=== PATIENT | male | born 1985 | race Caucasian/White ===

== ENCOUNTER 2022-05-31 10:01 | Emergency (ER) | payer OTHER, MEDICAID, SELFPAY ==
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
[2022-05-31 10:11] VITALS: BP 136/72; BP 160/106; PULSE 114; PULSE 115; RESP 22; TEMP 36.4; O2SAT 96; O2SAT 99; BMI 39.9
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
[2022-05-31 10:53] LABS: Basophils Percent Auto 0.3 % (0-2); Eosinophils Absolute Auto 0.1 X10*3/uL (0.0-0.4); Eosinophils Percent Auto 1.2 % (0-4); Hematocrit 44.9 % (42.0-52.0); Hemoglobin 15.7 g/dl (14.0-18.0); Imm Gran Abs Auto 0.03 X10*3/uL (0.00-0.03); Imm Gran Pct Auto 0.3 % (0.0-0.4); Lymphocytes Absolute Auto 1.7 X10*3/uL (1.2-4.9); Lymphocytes Percent Auto 19.7 % (20-40); MANUAL DIFF FLAG NO; Mean Corpuscular Hemoglobin 29.3 pg (27.0-33.0); Mean Corpuscular Volume 83.8 fL (80.0-98.0); Mean Platelet Volume 11.2 fL (9.4-12.4); Monocytes Absolute Auto 0.6 X10*3/uL (0.1-1.2); Monocytes Percent Auto 6.8 % (2-11); Neutrophils Absolute Auto 6.2 x10*3/uL (2.0-8.3); Neutrophils Percent Auto 71.7 % (45-73); Platelet Count 294 X10*3/uL (160-400); Red Blood Count 5.36 X10*6/uL (4.60-5.80); Red Cell Distribution Width 11.8 % (11.0-16.0); White Blood Count 8.6 X10*3/uL (4.8-10.8)
[2022-05-31 11:11] LABS: Alanine Aminotransferase 93 U/L (0-40); Albumin Level 4.3 g/dL (3.5-5.0); Alkaline Phosphatase 126 U/L (39-117); Anion Gap 13 (12-20); Aspartate Amino Transferase 56 U/L (5-37); Bilirubin Direct 0.4 mg/dL (0.0-0.5); Bilirubin Total 1.5 mg/dL (0.0-1.0); Blood Urea Nitrogen 18 mg/dL (9-16); Calcium 9.5 mg/dL (8.4-10.2); Carbon Dioxide 26 mmol/L (22-29); Chloride 106 mmol/L (96-108); Creatinine Clr Calc Pharmacy 126.9; Estimated Glomerular Filt Rate > 60; Glucose Random 214 mg/dL (60-115); Magnesium 1.8 mg/dL (1.6-2.6); Potassium 4.7 mmol/L (3.3-5.1); Sodium 140 mmol/L (135-145); Total Protein 7.1 g/dL (6.5-8.0)
[2022-05-31] MEDS: iohexoL 350 MG/ML 100 ML INFUS..BTL IV (11:50)
[2022-05-31 12:50] VITALS: BP 130/77; PULSE 98; RESP 20; O2SAT 97
[2022-05-31] MEDS: HYDROmorphone HCl 1 MG/ML SYRINGE IVPUSH (13:43)
[2022-05-31 14:00] VITALS: BP 119/84; PULSE 111; RESP 26; O2SAT 98
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
[2022-05-31 14:12] LABS: COVID-19 Test Negative (Negative); IDNOW Serial# 16C4AD1C
== END 2022-05-31 14:22 | disposition short-term general hospital (02) ==
PROVIDERS: Physician Assistant; Emergency Provider Emergency Medicine Emergency Medical Services
DX: S27.899A Unspecified injury of other specified intrathoracic organs, initial encounter (principal); V43.52XA Car driver injured in collision with other type car in traffic accident, initial encounter; Y93.89 Activity, other specified; Y92.414 Local residential or business street as the place of occurrence of the external cause; Y99.9 Unspecified external cause status; Z20.822 Contact with and (suspected) exposure to COVID-19
CPT/HCPCS: 36415; 70450; 71260; 72125; 74177; 80048; 80076; 83735; 85025; 87635; 96374; 99285; J1170; Q9967

== ENCOUNTER 2023-12-10 10:33 | Outpatient (AMB) | payer OTHER, SELFPAY ==
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
[2023-12-10 10:49] VITALS: BP 122/72; PULSE 86; RESP 16; BMI 36.9
== END 2023-12-10 11:52 | disposition home or self-care (01) ==
PROVIDERS: PCP Internal Medicine; Visit Provider Psychiatry & Neurology Neurology
DX: R41.89 Other symptoms and signs involving cognitive functions and awareness (principal); G44.86 Cervicogenic headache; D35.2 Benign neoplasm of pituitary gland; R06.83 Snoring; F41.9 Anxiety disorder, unspecified; G47.10 Hypersomnia, unspecified
CPT/HCPCS: 99204; G2211

== ENCOUNTER → 2023-12-10 10:33 | Outpatient (BNVA) | payer OTHER, SELFPAY | PROVIDERS: PCP Internal Medicine; Visit Provider Psychiatry & Neurology Neurology | DX: F09 Unspecified mental disorder due to known physiological condition (principal); F41.9 Anxiety disorder, unspecified; D35.2 Benign neoplasm of pituitary gland; R06.83 Snoring; R51.9 Headache, unspecified; G47.10 Hypersomnia, unspecified | CPT/HCPCS: 99202 ==

== ENCOUNTER → 2024-02-01 10:57 | Outpatient (REF) | payer OTHER, SELFPAY | LOC: HO.SL 10:57 | PROVIDERS: PCP Internal Medicine; Visit Provider Psychiatry & Neurology Neurology | DX: R06.83 Snoring (principal); G47.10 Hypersomnia, unspecified | CPT/HCPCS: 95806 ==

== ENCOUNTER → 2024-02-01 11:06 | Outpatient (BNV) | payer OTHER, SELFPAY | PROVIDERS: PCP Internal Medicine; Visit Provider Psychiatry & Neurology Neurology | DX: G47.33 Obstructive sleep apnea (adult) (pediatric) (principal) | CPT/HCPCS: 95806 ==

== ENCOUNTER 2024-04-13 12:05 | Outpatient (RCR) | payer OTHER, SELFPAY ==
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
== END 2024-04-15 11:49 | disposition still patient (30) ==
LOC: HO.SH 12:05
PROVIDERS: PCP Internal Medicine; Visit Provider Psychiatry & Neurology Neurology
DX: F09 Unspecified mental disorder due to known physiological condition (principal)
CPT/HCPCS: 96125

== ENCOUNTER 2024-04-29 09:49 | Outpatient (AMB) | payer OTHER, SELFPAY ==
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
[2024-04-29 09:55] VITALS: BMI 39.1
--- OUTSIDE RECORDS SUMMARY | 2024-05-04 07:11 | XMS_ITS ---
Author Organization [facility] Address [address] [facility] [address] [place], [place] [id number] Care Team Providers Care Thiokol Operator Name Role Phone NIKKI MCCURDY Unavailable [phone] Allergies No Known Allergies Results Component Value Reference Range Notes Estradiol-[id number] Reviewed date:04/19/2024 07:11:15 PM Interpretation:Normal Performing Lab:[facility], [address] [facility], Phone - [phone], Director - Dequan Notes/Report: Estradiol 122.0 7.6-42.6 pg/mL Deshaun ECLIA m ethodology Lipid Panel-[id number] Reviewed date:04/19/2024 02:31:40 PM Interpretation:Abnormal Performing Lab:[facility], [address] [place] [address], [place], Phone - [phone], Director - Dequan Notes/Report: Cholesterol, Total 151 100-199 mg/dL Triglycerides 301 0-149 mg/dL HDL Cholesterol 21 >39 mg/dL VLDL Cholesterol Ab 50 5-40 mg/dL LDL Chol Calc (NIH) 80 0-99 mg/dL Testosterone,All genders-540 005 Reviewed date:05/02/2024 07:06:57 PM Interpretation:3.9 Performing Lab:[facility], [address] [place] [address], Phone - [phone], Director - Curt Notes/Report: Testosterone, All genders 3.9 This test was developed and its performance characteristics determined by [facility]. It has not been cleared or approved by the Food and Drug Administration. Reference Range: Note: The order code chosen results in a complete set of reference ranges, including transgender specific reference intervals if applicable. Age Range Males Premature (26-28w) Day 4 59-125 Premature (31-35w) Day 4 37-198 Newborns 75-400 1 - 7m: Levels decrease rapidly the first week to 20 - 50, then increase to 60 - 400 between 20 - 60 days. Levels then decline to prepubertal range levels of <2.5 - 10 by seven months. Females Premature (26-28w) Day 4 5-16 Premature (31-35w) Day 4 5-22 Newborns 20-64 1 - 7m: Levels decrease during the first month to less than 10 and remain there until puberty. Prepubertal Males and Females <2.5-10 Milton Stage Age(years) Male 1 <9.8 2.5-10 2 9.8-14.5 18-150 3 10.7-15.4 100-320 4 11.8-16.2 200-620 5 12.8-17.3 350-970 [place] Stage Age(years) Female 1 <9.2 <2.5-10 2 9.2-13.7 7-28 3 10.0-14.4 15-35 4 10.7-15.6 13-32 5 11.8-18.6 20-38 Adult Males >18 years 264-916 This [facility] LC/MS-MS method is currently certified by the CDC Hormone Standardization Program (HoST). Adult male reference interval is based on a population of healthy nonobese males (BMI <30) between 19 and 39 years old. Melissa et.al. JCEM 2017,102;6307-9859 PMID: [id number]. Adult Females Premenopausal 10-55 Postmenopausal 7-40 REASON FOR VISIT Follow-up, Gender affirming hormone followup Medications Medication SIG (Take, Route, Frequency, Duration) Notes Start Date End Date Status Needle (Disp) 22G X 1-1/2 as directed for 90 days 01/18/2024 Active BD Syringe Luer-Bladimir 1 ML as directed for 90 days 0 01/18/2024 Active Easy Comfort Alcohol Pads - as directed for 90 days 01/18/2024 Acti ve Sharps Container - as directed for 90 days 024 Active Loratadine Active Magnesium Active Estradiol Valerate 20 MG/ML 0.25ml/5mg Intramuscular weekly for 90 days 01/18/2024 Active metFORMIN HCl Active Multivitamin Active Escitalopram Oxalate Active Vitamin B2 Active Acetaminophen Active Simethicone Active Fiber Active Social History Sex Assigned At : Social History Observation Description Sex Assigned At Male Vital Signs Blood pressure systolic 136 mm Hg 04/18/20 24 Blood pressure diastolic 78 mm Hg 024 Height 69 in 04/18/2024 Weight 257.1 lbs 04/18/2024 BMI 37.96 kg/m2 04/18/2024 Encounters Encounter Location Date Provider Diagnosis [facility] [address] [place] [id number] 04/18/2024 NIKKI MCCURDY Hormone replacement therapy Z79.890 Assessments Encounter Date Diagnosis (ICD Code) Assessment Notes Treatment Notes Treatment Clinical Notes Section Notes 04/18/2024 Hormone replacement therapy (ICD-10 - Z79.890) Discussed plan of care. Will call with lab results either way and confirm plan of care regarding dose increase. Answered all questions Need 2 out of 3 Sections from A-C Section A) Problems (only need one from below) One stable chronic illness Section B) Data (at least one of the following categories in this section) Category 1: (Choose 2 of the following): Order unique tests Review test results (each unique test counts as one) Category 2: Assessment requiring an independent historian Section C) Risk Document low risk of morbidity/morta lity Plan Of Treatment Treatment Notes Assessment Notes Hormone replacement therapy Discussed pl an of care. Will call with lab results either way and confirm plan of care regarding dose increase. Answered all questions Next Appt Details Follow Up: 3 Months, Reason: Provider Name:NIKKI MCCURDY , 07/19/2024 02:45:00 PM, [address] [place] [address], [phone], Progress Notes * Alvin LEWISDOB:1985 (38 yo M)Acc No.[id number]:04/18/2024 Gender affirming hormones fo llow up visit Patient:?Alvin LEWIS Provider:?Nikki Mccurdy NP :1985???Age:38 Y???Sex:Male William e:04/18/2024 Address:[address] [place] [address], [id number] Subjective: * Chief Complaints: * ???Follow-upGender affirming hormone followup * HPI: ???Visit Narrative:? Clt presenting for follow up [facility] visit. Was seen 12/2023 for initial start. Currently on Estradiol Valerate 0.25ml/5 mg weekly IM injections. Feels well on current dose, but hasn't yet started to notice many changes. Interested in increasing dose. Declines info on androgen myah. ?Reason for the visit:?[facility] follow up?.?Current form of control:?same sex partner?.?Presenting Symptoms:?no sx.?clt here today for [facility] follow up. Stated no concerns at this time, injections going good Has not noticed significant changes either positive or negative except for increased nipple sensitivity. interested in increasing dose of estradiol. Will check labs and call with plan after receiving results. * ROS:?ACHES:?shortness of breath?Denies.?chest pain?Denies.?visual changes?Denies.?calf pain?Denies.?abdominal pain?Denies.?Genitourinary:?Patient denies?pelvic pain.?Psychiatric:?Denies?Mood concerns.? * Medical History:? * Surgical History:?hearing garcia rgery mass in chest * Hospitalization/Major Diagno stic Procedure:?see above * Family History:?No Family Hi story documented..? * Social History:?Food Access:?Food Access?The Client's current access to food is?Secure Food Access ???Housing:?Housing?The client's current living situation is:?stable housing ???Reproductive Life Plan:?Reproductive Life Plan?Do you want to have children??No, I don't want to have children ???Sexual History:?Sexual History?Sexual History Reviewed:?Partners, Practices, Protection/Past STIs, Prevention of ?Currently sexually active??Yes ?Sexually active with:?Assigned Male at both fiance and SO transfem ?Number of assigned male at partners?2 ?Reviewed types of EC??No ?Do you use condoms??No ?Number of partners in past 3 months:?2 ?Number of partners in past year:?2 ?Does your partner(s) currently have any STIs??No ???HIV Risk Assessment:?Additional Questions?Is an HIV Risk Assessment being conducted??No ???PrEP for HIV:?PrEP for HIV?Is the client interested in beginning/continuing PrEP for HIV??No ???Relationships:?Relationships?Has the client experienced any of the following:?Client has never experienced harmful relationships ???Human Trafficking:?Human Trafficking?Experienced:?No ???Tobacco Use:?Tobacco Use?Do you/have you used tobacco??Yes, in the past ?Tobacco Smoking Status?Former smoker ???Drugs/Alcohol:?Drug/Alcohol Use?Do you or have you used drugs??Yes, currently ?By what route are you taking drugs? Please check all that apply:?Smoking ?Which drug(s) do you smoke??Marijuana ?Do you or have you used alcohol??Yes, currently ???Counseling Provided:?Counseling Provided?Please indicate the length of time, in minutes, that counseling was provided.?6 ?Counseling Was Provided By:?mustapha * Medications:?TakingSimethico ne Acetaminophen Vitamin B2 Escitalopram Oxalate Fiber Magnesium Loratadine Multivitamin metFORMIN HCl Estradiol Valerate 20 MG/ML Oil 0.25ml/5mg Intramuscular weekly Sharps Container - Miscellaneous as directed Easy Comfort Alcohol Pads - Pad as directed BD Syringe Luer-Bladimir 1 ML Miscellaneous as directed Needle (Disp) 22G X 1-1/2 Miscellaneous as directed Taking Simethicone Taking Acetaminophen Taking Vitamin B2 Taking Escitalopram Oxalate Taking Fiber Taking Magnesium Taking Loratadine Taking Multivitamin Taking metFORMIN HCl Taking Estradiol Valerate 20 MG/ML Oil 0.25ml/5mg Intramuscular weekly Taking Sharps Container - Miscellaneous as directed Taking Easy Comfort Alcohol Pads - Pad as directed Taking BD Syringe Luer-Bladimir 1 ML Miscellaneous as directed Taking Needle (Disp) 22G X 1-1/2 Miscellaneous as directed DiscontinuedVitamin B 12 Medication List reviewed and reconciled with the patientDiscontinued Vitamin B 12 Medication List reviewed and reconciled with the patient * Allergies:?N.K.D.A.no[Allerg ies Verified] Objective: * Vitals:?BP:136/78mm Hg, Ht: 69 in, Wt:257.1lbs, BMI:37.96Index, Ht-cm: 175.26, Wt-k.62. * Examination: ???General Examination: ?GENERAL APPEARANCE:?pleasant, in no acute distress.? Assessment: * Assessment: 1.?Hormone replacement thera py - Z79.890 (Primary)??? Need 2 out of 3 Sections fro m A-C Section A) Problems (only need one from below) One stable chronic illness Section B) Data (at least one of the following categories in this section) Category 1: (Choose 2 of the following): Order unique tests Review test results (each unique test counts as one) Category 2: Assessment requiring an independent historian Section C) Risk Document low risk of morbidity/mortality Plan: * Treatment: * Procedure Codes:? * Follow Up:?3 Months * Billing Information: * Visit Code:? 95023 Existing - Low Complexity (IN USE). * Procedure Codes:? * Sign off status: Completed true * Provider:Elsi Mccurdy NP Date:? 024 Generated for Mervin lucero/Feliberto/Kamranransmitting on:?05/04/2024 07:10 AM EST History and Physical Notes * HPI (History of Present Illness) Category Sub-Category Detail Notes Category Not es Visit Narrative Reason for the visit: [facility] follow up clt here today for [facility] follow up. Stated no concerns at this time, injections going good Has not noticed significant changes either positive or negative except for increased nipple sensitivity. interested in increasing dose of estradiol. Will check labs and call with plan after receiving results. Current form of control: same sex partner Presenting Symptoms: no sx Examination Category Sub-Category Detail Notes Category Not es General Examination GENERAL APPEARANCE: pleasant, in n o acute distress
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
--- OUTSIDE RECORDS SUMMARY | 2024-05-04 07:11 | XMS_ITS ---
Author Organization [facility] Address [address] [place] [phone] Care Team Providers Care Railroad Wheels And Axle Inspector Name Role Phone CALE MCCURDY Unavailable [phone] Allergies No Known Allergies REASON FOR VISIT [facility] labs and follow up plan Medications Medication SIG (Take, Route, Frequency, Duration) Notes Start Date End Date Status BD Syringe/Needle 22G X 1-1/2 3 ML as directed IM weekly for 90 days 05/02/2024 Active BD Disp [place] 19G X 1 used to draw up medication for 90 days 05/02/2024 Active Estradiol Valerate 20 MG/ML 0.5 ml/10mg Intramuscular weekly for 90 days 01/18/2024 Active Social History Sex Assigned At : Social History Observation Description Sex Assigned At Male Encounters Encounter Location Date Provider Diagnosis [address] [phone] 04/18/2024 CALE MCCURDY Gender identity disorder, unspecified F64.9 Assessments Encounter Date Diagnosis (ICD Code) Assessment Notes Treatment Notes Treatment Clinical Notes Section Notes 04/18/2024 Gender identity disorder, unspecified (ICD-10 - F64.9) Plan Of Treatment Medication Medication Name Sig Start Date Stop Date Notes BD Syringe/Needle 22G X 1-1/2 3 ML as directed IM weekly for 90 days 05/02/2024 BD Disp [place] 19G X 1 used to draw up medication for 90 days 05/02/2024 Estradiol Valerate 20 MG/ML 0.5 ml/10mg Intramuscular weekly for 90 days 01/18/2024 Next Appt Details Provider Name:CALE MCCURDY , 07/19/2024 02:45:00 PM, [address] [place] [address], [place], [place], [phone], Progress Notes * Alvin LEWISDOB:1985 (38 yo M)Acc No.[id number]:04/18/2024 Patient:Alvin TALLEY :1985???Age:38 Y???Sex:Male Address:[address] [place] [address], [facility], [place], [address] * Refills? Continue Estradiol Valerate Oil, 20 MG/ML, Intramuscular, 1, 0.5 ml/10mg, weekly, 90 days, Refills=0 Start BD Disp [place] Miscellaneous, 19G X 1 , 12, used to draw up medication, 90 days, Refills=0 Start BD Syringe/Needle Miscellaneous, 22G X 1-1/2 3 ML, 12, as directed IM weekly, 90 days, Refills=0 Subjective: * Chief Complaints: * ???[facility] labs and follow up pl an * Medical History:? * Surgical History:? * Hospitalization/Major Diagno stic Procedure:? * Medications:? * Allergies:?N.K.D.A.no[Allerg ies Verified] Objective: * Vitals:? * Physical Examination:? Assessment: * Assessment: 1.?Gender identity disorder, unspecified - F64.9??? Plan: * Treatment: 2.?Others? Start BD Disp [place] Miscellaneous, 19G X 1 , used to draw up medication, 90 days, 12, Refills 0;?Start BD Syringe/Needle Miscellaneous, 22G X 1-1/2 3 ML, as directed IM weekly, 90 days, 12, Refills 0.?? * Procedure Codes:? * * Date:?
--- OUTSIDE RECORDS SUMMARY | 2024-05-04 07:11 | XMS_ITS ---
Author Organization [facility] Address [address] [phone] Care Team Providers Care Director Of Vocational Training Name Role Phone RAFAEL LARSON Unavailable [phone] Allergies No Known Allergies REASON FOR VISIT injection teaching Medications Medication SIG (Take, Route, Frequency, Duration) Notes Start Date End Date Status Easy Comfort Alcohol Pads - as directed for 90 days 01/18/2024 Acti ve BD Syringe Luer-Bladimir 1 ML as directed for 90 days 0 01/18/2024 Active Estradiol Valerate 20 MG/ML 0.25ml/5mg Intramuscular weekly for 90 days 01/18/2024 Active Sharps Container - as directed for 90 days 024 Active Needle (Disp) 22G X 1-1/2 as directed for 90 days 01/18/2024 Active Multivitamin Active metFORMIN HCl Active Magnesium Active Loratadine Active Fiber Active Escitalopram Oxalate Active Vitamin B 12 Active Social History Sex Assigned At : Social History Observation Description Sex Assigned At Male Section Notes: social hx not reviewed today Problems Problem Type SNOMED Code ICD Code Onset Dates Problem Status W/U Status Risk Notes Problem Gender identity disorder of childhood (2822502) Other gender identity disorders (F64.8) Active confirmed Encounters Encounter Location Date Provider Diagnosis [facility] [address] [place], [place] [phone] 02/10/2024 RAFAEL LARSON Hormone replacemen t therapy Z79.890 and Other gender identity disorders F64.8 Assessments Encounter Date Diagnosis (ICD Code) Assessment Notes Treatment Notes Treatment Clinical Notes Section Notes 02/10/2024 Hormone replacement therapy (ICD-10 - Z79.890) [...] 18 minutes doing the following: Chart Prep Obtaining/rev iewing history Performing medically necessary exam Counseling/Co ordination of Care Documenting the visit Educating the patient Established Patient: 75791 10 Minutes 02/10/2024 Other gender identity disorders (ICD-10 - F64.8) Spent 18 minutes doing the following: Chart Prep Obtaining/rev iewing history Performing medically necessary exam Counseling/Co ordination of Care Documenting the visit Educating the patient Established Patient: 47504 10 Minutes Plan Of Treatment Treatment Notes Assessment Notes Hormone replacement therapy Reviewed self injection equipment and process for [...] and labs in 3 months as scheduled Next Appt Details Follow Up: 3 Months, Reason: [facility] fu Provider Name:CALE Brittney ASHRAFAdri , 07/19/2024 02:45:00 PM, [address] [place] [address], [address], [place], [place], [phone], Progress Notes * Alvin LEWISDOB:1985 (38 yo M)Acc No.[id number]:02/10/2024 Gender affirming hormones fo llow up visit Patient:?Alvin LEWIS Provider:ARNOLD LARSON :1985???Age:38 Y???Sex:Male William e:02/10/2024 Address:[address] [place], [place] [id number] Subjective: * Chief Complaints: * ???Injection teaching * HPI: ???Visit Narrative:? Clt seen for [facility] start 01/18/24. Here for injection teaching. Estradiol valerate 0.25ml/5mg IM weekly. Clt brought in their supplies. ?Reason for the visit:?Injection teaching.?Presenting Symptoms:?no concerns.? * ROS:?General/Constitutional:?Comments?Has no complaints.? * Medical History:? * Surgical History:?hearing garcia rgery mass in chest * Hospitalization/Major Diagno stic Procedure:?see above * Family History:?No Family Hi story documented..? * Social History:?Food Access:?Food Access?The Client's current access to food is?Secure Food Access ???social hx not reviewed today. * Medications:?TakingEscitalop olivia Oxalate Vitamin B 12 Fiber Magnesium Loratadine Multivitamin metFORMIN HCl Estradiol Valerate 20 MG/ML Oil 0.25ml/5mg Intramuscular weekly Sharps Container - Miscellaneous as directed Easy Comfort Alcohol Pads - Pad as directed BD Syringe Luer-Bladimir 1 ML Miscellaneous as directed Needle (Disp) 22G X 1-1/2 Miscellaneous as directed Medication List reviewed and reconciled with the patientTaking Escitalopram Oxalate Taking Vitamin B 12 Taking Fiber Taking Magnesium Taking Loratadine Taking Multivitamin Taking metFORMIN HCl Taking Estradiol Valerate 20 MG/ML Oil 0.25ml/5mg Intramuscular weekly Taking Sharps Container - Miscellaneous as directed Taking Easy Comfort Alcohol Pads - Pad as directed Taking BD Syringe Luer-Bladimir 1 ML Miscellaneous as directed Taking Needle (Disp) 22G X 1-1/2 Miscellaneous as directed Medication List reviewed and reconciled with the patient * Allergies:?N.K.D.A.no[Allerg ies Verified] Objective: * Vitals:? * Examination: ???General Examination: ?GENERAL APPEARANCE:?in no acute distress.?SKIN:?warm and dry, no suspicious lesions.?PSYCH:?alert, oriented.? Assessment: * Assessment: 1.?Hormone replacement thera py - Z79.890 (Primary)???2.?Other gender identity disorders - F64.8??? Spent 18 minutes doing the f ollowing: Chart Prep Obtaining/reviewing history Performing medically necessary exam Counseling/Coordination of Care Documenting the visit Educating the patient Established Patient: 32703 10 Minutes Plan: * Treatment: * Procedure Codes:? * Follow Up:?3 Months (Reason: [facility] fu) * Billing Information: * Visit Code:? 58274 Existing - Minimal Complexity (IN USE). * Procedure Codes:? * Sign off status: Completed true * Provider:ARNOLD LARSON Date:?02/10/2024 Generated for Mervin lucero/Feliberto/Maverick on:?05/04/2024 07:10 AM EST History and Physical Notes * HPI (History of Present Illness) Category Sub-Category Detail Notes Category Not es Visit Narrative Reason for the visit: Injection teachi ng Presenting Symptoms: no concerns Examination Category Sub-Category Detail Notes Category Not es General Examination GENERAL APPEARANCE: in no acute di stress SKIN: warm and dry, no constantine picious lesions PSYCH: alert, oriented
== END 2024-04-29 10:19 | disposition home or self-care (01) ==
PROVIDERS: PCP Internal Medicine; Visit Provider Psychiatry & Neurology Neurology
DX: R41.89 Other symptoms and signs involving cognitive functions and awareness (principal); R51.9 Headache, unspecified; D35.2 Benign neoplasm of pituitary gland; F41.9 Anxiety disorder, unspecified; G47.33 Obstructive sleep apnea (adult) (pediatric)
CPT/HCPCS: 99214; G2211

== ENCOUNTER → 2024-04-29 09:49 | Outpatient (BNVA) | payer OTHER, SELFPAY | PROVIDERS: PCP Internal Medicine; Visit Provider Psychiatry & Neurology Neurology | DX: F09 Unspecified mental disorder due to known physiological condition (principal); R51.9 Headache, unspecified; D35.2 Benign neoplasm of pituitary gland; F41.9 Anxiety disorder, unspecified; G47.33 Obstructive sleep apnea (adult) (pediatric) | CPT/HCPCS: 99212 ==

== ENCOUNTER 2024-08-01 13:00 | Outpatient (RCR) | payer OTHER, SELFPAY ==
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
== END 2024-08-01 14:46 | disposition home or self-care (01) ==
LOC: HO.SH 13:00
PROVIDERS: PCP Internal Medicine; Visit Provider Psychiatry & Neurology Neurology
DX: F09 Unspecified mental disorder due to known physiological condition (principal)
CPT/HCPCS: 92507

== ENCOUNTER 2024-10-31 08:57 | Outpatient (AMB) | payer OTHER, SELFPAY ==
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
[2024-10-31 09:00] VITALS: BP 142/88; BMI 39.0
--- OUTSIDE RECORDS SUMMARY | 2024-10-31 09:12 | XMS_ITS ---
Author Organization [facility] Address [address] [place] [id number] Care Team Providers Care Talent Solutions Manager Name Role Phone RAFAEL LARSON Unavailable [phone] REASON FOR VISIT GA labs Social History Sex Assigned At : Social History Observation Description Sex Assigned At Male Encounters Encounter Location Date Provider Diagnosis [address] [id number] 11/2024 RAFAEL LARSON Plan Of Treatment Next Appt Details Provider Name:RAFAEL LARSON, 10:00:00 AM, [address] [place] [address], [id number], Provider Name:RAFAEL LARSON, 10:00:00 AM, [address] [place] [address], [id number], Progress Notes * DEBBIE AlvinDOB:1985 (39 yo M)Acc No.[id number]:09/28/2024 LAB Patient:?LEWISTaylor Dominguezwin Provider:?RAFAEL LARSON :1985???Age:38 Y???Sex:Male William e:09/28/2024 Address:[address] [place] [address], [address], [id number] Subjective: * Chief Complaints: * ???1. GA labs. * Medical History:? Objective: * Vitals:? Assessment: Plan: * Treatment: * Billing Information: * Visit Code:? * Procedure Codes:? * Electronic signature of CHE LARSON CNM on 10/31/2024 at 09:12 AM EDT Sign off status: Pending * Provider:ARNOLD LARSON Date:?09/28/2024 Generated for Mervin lucero/Feliberto/Maverick on:?10/31/2024 09:12 AM EDT
== END 2024-10-31 09:17 | disposition home or self-care (01) ==
LOC: HO.HSMS 08:58
PROVIDERS: PCP Internal Medicine; Visit Provider Psychiatry & Neurology Neurology
DX: R41.89 Other symptoms and signs involving cognitive functions and awareness (principal); R51.9 Headache, unspecified; D35.2 Benign neoplasm of pituitary gland; F41.9 Anxiety disorder, unspecified; G47.33 Obstructive sleep apnea (adult) (pediatric)
CPT/HCPCS: 99214; G2211

== ENCOUNTER → 2024-10-31 08:57 | Outpatient (BNVA) | payer OTHER, SELFPAY | PROVIDERS: PCP Internal Medicine; Visit Provider Psychiatry & Neurology Neurology | DX: F43.10 Post-traumatic stress disorder, unspecified (principal); V89.2XXA Person injured in unspecified motor-vehicle accident, traffic, initial encounter; F09 Unspecified mental disorder due to known physiological condition; R51.9 Headache, unspecified; D35.2 Benign neoplasm of pituitary gland; F41.9 Anxiety disorder, unspecified; G47.33 Obstructive sleep apnea (adult) (pediatric) | CPT/HCPCS: 99212 ==

== ENCOUNTER 2025-01-11 10:26 | Outpatient (AMB) | payer OTHER, SELFPAY ==
[2025-01-11 10:32] VITALS: BP 119/62; PULSE 91; RESP 16; O2SAT 91; BMI 38.4
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
== END 2025-01-11 11:10 | disposition home or self-care (01) ==
LOC: HO.PMC 10:27
PROVIDERS: PCP Internal Medicine; Visit Provider Registered Nurse Emergency
DX: M47.816 Spondylosis without myelopathy or radiculopathy, lumbar region (principal); G89.4 Chronic pain syndrome
CPT/HCPCS: 99204

== ENCOUNTER 2025-01-11 10:26 | Outpatient (REF) | payer OTHER, SELFPAY ==
--- OUTSIDE RECORDS SUMMARY | 2025-01-09 09:30 | XMS_ITS | Encounter Summary ---
Author Organization [facility] Address [address] [place] [address] Care Team Providers Care Manager Land Name Role Phone Lynn Treviño MD Primary Care Provider [phone] Reason for Referral * Imaging (Routine) - Pending Review Specialty Diagnoses / Procedures Referred By Dangelo t Referred To Contact Diagnoses Leg edema Procedures Vascular US duplex lower extremity venous insufficiency bilateral Amber Pickard MD [address] [facility] [address] [place] [address] Phone: tel: fax: [facility] Referral ID Status Reason Start Date Expiration Date V isits Requested Visits Authorized [id number] Pending Review 01/09/2025 01/09/2026 1 1 Reason for Visit * Reason Comments Consult * Consultation (Routine) - Authorized Specialty Diagnoses / Procedures Referred By Dangelo dsouza Referred To Contact Vascular Surgery Diagnoses Leg edema Lynn Treviño MD [address] [place] [phone] Phone: tel: fax: Vascular Surgery - [place] [address] [place] [address] Phone: tel: fax: Referral ID Status Reason Start Date Expiration Date Visits Requested Visits Authorized [id number] Authorized Specialty Services Required 08/19/2024 08/19/2025 1 1 Encounter Details Date Type Department Care Team (Late st Contact Info) Description 01/09/2025 9:30 AM EDT Consult Vascular Surgery - [place] [address] [place] [address] Amber Pickard MD [address] [place] [address] Leg edema Social History Tobacco Use Types Packs/Day Years Used Date Smoking Tobacco: Former Smokeless Tobacco: Former Housing Instability Answer Date Recorde d Are you worried that in the next 2 months you may not have stable housing? Yes 08/18/2024 Food Access & Nutrition Answer Date Rec orded Do you have access to a vari ety of food including fruits and vegetables? Yes 08/18/2024 Access to Healthcare Answer Date Record ed Within the last 3 months, ho w many times did you visit the emergency department for your medical care? 0 08/18/2024 Health Literacy Answer Date Recorded How often do you need to hav e someone help you when you read instructions, pamphlets, or other written material from your doctor or pharmacy? Rarely 08/18/2024 Caregiver: How often do you need to have someone help you when you read instructions, pamphlets, or other written material from your doctor or pharmacy? Not on file 08/18/2024 Financial Risk Answer Date Recorded How hard is it for you to pa y for the very basics like food, housing, medical care, and air conditioning / heating? Very hard 08/18/2024 Transportation Answer Date Recorded Has the lack of transportati on kept you from meetings, work, or from getting things needed for daily living? No Has the lack of transportati on kept you from medical appointments or from getting medications? No 08/18/2024 Social Isolation Answer Date Recorded How often do you feel lonely or isolated from th ose around you? Always 08/18/2024 Food Risk Answer Date Recorded Within the past 12 months we worried whether our food would run out before we got money to buy more. Sometimes true 025 Within the past 12 months th e food we bought just didn't last and we didn't have money to get more. Sometimes true 08/18/2024 Dependent Care Answer Date Recorded Do you need help finding or paying for care for your loved ones. For example, exceptional children's teacher or elderly care for an older adult? No 08/18/2024 Education Answer Date Recorded Do you think completing more education or training, like finishing a GED, going to college, or learning a trade, would be helpful for you? Yes 08/18/2024 Employment and Income Answer Date Recor ded During the last four weeks, have you been actively looking for work? Yes 08/18/2024 Living Situation Answer Date Recorded What is your living situation? 0 08/18/2024 Sex and Gender Information Value Date Recorded Sex Assigned at Male 04/19/2024 2:08 PM EST Legal Sex Male 8:50 PM EST Gender Identity Other 04/19/2024 2:08 PM EST Sexual Orientation Bisexual 08/12/2024 11 :00 AM EDT documented as of this encounter Last Filed Vital Signs Vital Sign Reading Time Taken Comments Blood Pressure 105/69 01/09/2025 9:23 AM EDT Pulse 83 01/09/2025 9:23 AM EDT Temperature - - Respiratory Rate - - Oxygen Saturation - - Inhaled Oxygen Concentration - - Weight 122 kg (268 lb) 01/09/2025 9:23 AM EDT Height 175.3 cm (5' 9 ) 01/09/2025 9:23 AM EDT Body Mass Index 39.58 01/09/2025 9:23 AM EDT documented in this encounter Progress Notes * Hiwot Resendiz MA - 01/09/2025 9:30 AM EDTAddended by: HIWOT RESENDIZ on: 01/09/2025 02:16 PM Modules accepted: Orders * Brenda Murguia MA - 01/09/2025 9:30 AM EDT Vascular US duplex lower extremity venous right -06/14/24 EXAM: Limited extremity veins ultrasound HISTORY: Right leg edema/swelling. COMPARISON: None FINDINGS: Duplex Doppler scanning of the deep venous system of the right lower extremity is performed. Scanning is performed from the proximal common femoral vein and greater saphenous confluence through the popliteal vein. All veins of the deep venous system are normally compressible. Normal Doppler flow is demonstrated within them. Augmentation maneuvers are normal. Gastrocnemius veins are normally compressible. Normal color Doppler flow within posterior tibial and peroneal veins. No popliteal cyst. IMPRESSION: No evidence of deep venous thrombosis in the right lower extremity. * Amber Pickard MD - 01/09/2025 9:30 AM EDT [facility] Vascular & Endovascular Surgery HPI: 39M presents for evaluation of swelling in both legs for the last 6 months. Swelling is mostly at the ankles but also half way up the calves. It prevents him from zipping up his boots. No known heart, lung or liver conditions. He is on estradiol which may cause swelling, but vascular surgery evaluation was requested to rule out vascular etiology. Prior to this visit he underwent a venous duplex which was negative for DVT. Past Medical History: Past Medical History: Diagnosis Date Anxiety Depression Diabetes ([facility] V24, [facility] V28) Past Surgical History: Past Surgical History: Procedure Laterality Date THORACIC DISC SURGERY Social History: Social History Tobacco Use Smoking status: Former Smokeless tobacco: Former Family History: No family history on file. Allergies: No Known Allergies Medications: Current Outpatient Medications: acetaminophen (TYLENOL) 500 mg tablet, Take by mouth every 6 (six) hours if needed for mild pain., Disp: , Rfl: blood-glucose meter (FREESTYLE FREEDOM LITE MISC), 1 Each by Does not apply route daily., Disp: , Rfl: escitalopram (LEXAPRO) 10 mg tablet, Take 1 tablet (10 mg total) by mouth 1 (one) time each day. Prescribe by [facility] Neurologist, Disp: , Rfl: estradiol valerate (DELESTROGEN) 20 mg/mL injection, Inject 0.25 mL (5 mg total) into the shoulder,thigh, or buttocks every 28 (twenty-eight) days., Disp: , Rfl: FreeStyle Lancets 28 gauge lancets, USE TO TEST BLOOD SUGAR ONCE DAILY, Disp: 200 each, Rfl: 2 FREESTYLE LANCETS MISC, 1 Each by Does not apply route daily., Disp: , Rfl: glucose blood test strip, Test once daily, Disp: 100 each, Rfl: 12 loratadine (CLARITIN) 10 mg tablet, Take 1 tablet (10 mg total) by mouth 1 (one) time each day., Disp: , Rfl: metFORMIN (GLUCOPHAGE) 500 mg tablet, Take 1 tablet (500 mg total) by mouth 1 (one) time each day with breakfast., Disp: 90 tablet, Rfl: 1 OMEGA-3 FATTY ACIDS ORAL, Take by mouth., Disp: , Rfl: riboflavin (VITAMIN B2) 100 mg tablet, Take 1 tablet (100 mg total) by mouth 1 (one) time each day., Disp: , Rfl: UNABLE TO FIND, Magnesium Oxide 240 MG Powd Pack Take 1 Tablet by mouth daily. - Oral, Disp: , Rfl: Review of symptoms: No fevers or chills No TIA or stroke like symptoms No chest pain No shortness of breath at rest/exertion No post prandial abdominal pain/weight loss No abdominal pain No back pain No lower extremity claudication, rest pain, or tissue loss Yes leg swelling No bleeding or clotting problems Physical Exam: Visit Vitals BP 105/69 (BP Location: Right arm, Patient Position: Sitting) Pulse 83 Ht 1.753 m (69 ) Wt 122 kg (268 lb) BMI 39.58 kg/m?? Smoking Status Former BSA 2.34 m?? General: No apparent distress. Eyes: Sclerae anicteric. ENT: Mucous membranes moist. Lungs: Non-labored breathing. Abdomen: Soft, non-tender, non-distended. Musculoskeletal: Moves all extremities without difficulty. Mild non-pitting edema both legs. Peripheral vascular: Palpable pedal pulses. Psychiatric: Mood is stable. Assessment & Plan: Bilateral lower extremity swelling of unknown etiology. Possibly related to estradiol. Rule out vascular etiology with venous reflux study. Follow-up after study. Apply compression stockings in the interim. Amber Pickard MD, [facility] Vascular & Endovascular Surgery [facility] I spent a total of 20 minutes reviewing the record and evaluating the patient on the day of the encounter. documented in this encounter Plan of Treatment Upcoming Encounters Date Type Department Care Team (Late st Contact Info) Description 04/13/2025 9:30 AM EST Office Visit Adult Medicine [facility] [address] [place] [phone] Lynn Treviño MD [address] [place] [address] Scheduled Orders Name Type Priority Associated Diagnoses Order Schedule Vascular US duplex lower extremity venous insufficiency bilateral Vascular Ultrasound Routine Leg edema Expected: 04/10/2025, Expires: 01/09/2026 documented as of this encounter Visit Diagnoses Diagnosis Leg edema Edema documented in this encounter Historical Medications * This list may reflect changes made after this encounter. loratadine (CLARITIN) 10 mg tablet Take 1 tablet (10 mg total) by mouth 1 (one) time each day. added in this encounter Orders General Supply Count Last Ordered Date First Or dered Date COMPRESSION STOCKINGS 1 01/09/2025 Outpatient Referral Count Last Ordered Date Fir st Ordered Date AMB REFERRAL TO VASCULAR SURGERY 1 01/10/20 25 documented in this encounter Additional Health Concerns Assessment Noted Time PHQ-9 Depression Total Score: 17 08/18/2 025 3:53 PM EDT documented as of this encounter Care Teams Manager Land Relationship Specialty Start Date End Date Lynn Treviño MD [address] [place] [address] PCP - General 10/01/22 documented as of this encounter
--- NOTE | ~2025-01-11 | XR_ITS ---
EXAMINATION: XR LUMBOSACRAL SPINE CLINICAL INFORMATION: M47.816 - Spondylosis without myelopathy or radiculopathy, lumbar region COMPARISON: None available. TECHNIQUE: 7 views of the lumbar spine, inclusive of flexion and extension views, and bilateral oblique views, were obtained. FINDINGS: No significant scoliosis. There is normal lordosis. There is no compression deformity, fracture, or suspicious bone lesion. There is no subluxation. Facets are normally aligned. There are no pars defects on the oblique views. Disc spaces demonstrate minimal/early degenerative changes. Facets are normally aligned. No significant facet arthrosis. Flexion and extension views show no evidence of instability or developing subluxations. No soft tissue abnormalities. XR/XR lumbar spine 6V w bending IMPRESSION: 1. Early degenerative disc disease of the lumbar spine. No acute bony abnormalities. 2. No subluxations or evidence of instability on flexion and extension views. Electronically signed by: Fran Hooper MD 01/11/2025 12:15 PM EDT
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
--- OUTSIDE RECORDS SUMMARY | 2025-01-11 12:40 | XMS_ITS ---
Author Name [facility] Organization Unknown Care Team Organization Name Specialty Phone Email Start Date End Da te [facility] 09/29/2022 01/11/2024
== END 2025-01-11 10:27 | disposition home or self-care (01) ==
LOC: HO.XRAY 10:26
PROVIDERS: PCP Internal Medicine; Visit Provider Registered Nurse Emergency
DX: G89.4 Chronic pain syndrome (principal); M47.816 Spondylosis without myelopathy or radiculopathy, lumbar region
CPT/HCPCS: 72114; 99202

== ENCOUNTER → 2025-01-11 11:21 | Outpatient (BNV) | payer OTHER, SELFPAY | PROVIDERS: PCP Internal Medicine; Visit Provider Radiology Diagnostic Radiology | DX: M47.816 Spondylosis without myelopathy or radiculopathy, lumbar region (principal) | CPT/HCPCS: 72114 ==

== ENCOUNTER 2025-02-20 13:04 | Outpatient (AMB) | payer OTHER, SELFPAY ==
--- OUTSIDE RECORDS SUMMARY | 2024-09-28 06:00 | XMS_ITS ---
Author Organization [facility] Address [address] [place] [phone] Care Team Providers Care Service Dispatcher Name Role Phone RAFAEL LARSON Unavailable [phone] REASON FOR VISIT [facility] labs Social History Sex Assigned At : Social History Observation Description Sex Assigned At Male Encounters Encounter Location Date Provider Diagnosis [address] [phone] 11/2024 RAFAEL LARSON Plan Of Treatment Next Appt Details Provider Name:RAFAEL LARSON, 11:00:00 AM, [address] [place] [address], [phone], Provider Name:RAFAEL LARSON, 09/2024 11:00:00 AM, [address] [place] [address], [phone], Progress Notes * Alvin LEWISDOB:1985 (39 yo M)Acc No.[id number]:09/28/2024 LAB Patient: Solo hunterAlvin Provider: Brittney LARSON :1985 A ge:38 Y S ex:Male Date:09/28/2024 Address:[address] [place] [address], [address], [place], [id number] Subjective: * Chief Complaints: * G AH labs * Electronic signature of CHE LARSON CNM on 02/20/2025 at 02:20 PM EDT Sign off status: Pending * Provider: Brittney LARSON Date: 0 09/28/2024 Generated for Mervin lucero/Faxing/eTransmitting on: 0 02/20/2025 02:20 PM EDT
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
[2025-02-20 13:38] VITALS: BMI 38.9
--- OUTSIDE RECORDS SUMMARY | 2025-02-20 14:20 | XMS_ITS | Patient Health Record ---
Author Organization [facility] Address [address] [facility] [place], [place] [id number] Care Team Providers Care Data Conversion Analyst Name Role Phone ANDRIYAdri CALE Unavailable [phone] RAFAEL LARSON Unavailable [phone] Allergies No Known Allergies Results Component Value Reference Range Flag Notes Estradiol-[id number] Reviewed date:04/19/2024 07:11:15 PM Interpretation:Normal Performing Lab:[facility], [address] [facility], Phone - [phone], Director - Dequan Notes/Report: Estradiol 122.0 7.6-42.6 pg/mL H Deshaun ECLI A methodology Lipid Panel-[id number] Reviewed date:04/19/2024 02:31:40 PM Interpretation:Abnormal Performing Lab:[facility], [address] [facility], Phone - [phone], Director - Dequan Notes/Report: Cholesterol, Total 151 100-199 mg/dL Triglycerides 301 0-149 mg/dL H HDL Cholesterol 21 >39 mg/dL L VLDL Cholesterol Ab 50 5-40 mg/dL H LDL Chol Calc (NIH) 80 0-99 mg/dL Testosterone,All genders-540 005 Reviewed date:05/02/2024 07:06:57 PM Interpretation:3.9 Performing Lab:[facility], [address] [place] [address], Phone - [phone], Director - Curt Notes/Report: Testosterone, All genders 3.9 nonobese males (BMI <30) between 19 and 39 years old. ashley Torres.al. JCEM 2017,102;4263-9162 PMID: [id number]. Adult Females Premenopausal 10-55 Postmenopausal 7-40 This test was developed and its performance characteristics determined by [facility] [employer]. It has not been cleared or approved [...] is based on a population of healthy Estradiol-[id number] Reviewed date:07/14/2024 10:03:37 AM Interpretation:432, elevated Performing Lab:[facility], [address] [place] [address], Phone - [phone], Director - Dequan Notes/Report: Estradiol 432.0 7.6-42.6 pg/mL H Deshaun ECLI A methodology Testosterone,All genders-540 005 Reviewed date:07/21/2024 09:06:38 AM Interpretation:4.8 Performing Lab:[facility], [address] [place] [address], Phone - [phone], Director - Curt Notes/Report: Testosterone, All genders 4.8 This test was developed and its performance characteristics determined by [facility] [employer]. It has not been cleared or approved [...] 20-38 Adult Males >18 years 264-916 This [facility] LC/MS-MS method is currently certified by the CDC Hormone Standardization Program (HoST). Adult male reference interval is based on a population of healthy nonobese males (BMI <30) between 19 and 39 years old. Melissa, et.al. JCEM 2017,102;8250-8683 PMID: [id number]. Adult Females Premenopausal 10-55 Postmenopausal 7-40 Estradiol-[id number] Reviewed date:09/25/2024 08:20:36 AM Interpretation:196 Performing Lab:[facility], [address] [place] [address], [facility], Phone - [phone], Director - Dequan Notes/Report: Estradiol 196.0 7.6-42.6 pg/mL H Deshaun ECLI A methodology Testosterone,All genders-540 005 Reviewed date:10/03/2024 10:37:14 AM Interpretation:3.3 Performing Lab:[facility], [address] [facility], [facility], Phone - [phone], Director - [facility] Notes/Report: Testosterone, All genders 3.3 This test [...] 20-38 Adult Males >18 years 264-916 This [facility] LC/MS-MS method is currently certified by the CDC Hormone Standardization Program (HoST). Adult male reference interval is based on a population of healthy nonobese males (BMI <30) between 19 and 39 years old. Melissa et.al. JCEM 2017,102;9743-5107 PMID: [id number]. Adult Females Premenopausal 10-55 Postmenopausal 7-40 Estradiol-[id number] Reviewed date:12/23/2024 12:36:46 PM Interpretation:370 Performing Lab:[facility], [address] [place] [address], [facility], Phone - [phone], Director - Dequan Notes/Report: Estradiol 370.0 7.6-42.6 pg/mL H Deshaun ECLI A methodology Testosterone,All genders-540 005 Reviewed date:01/05/2025 01:59:50 PM Interpretation:3.9 Performing Lab:[facility], [address] [place] [address], Phone - [phone], Director - Curt Notes/Report: Testosterone, All genders 3.9 This test was developed and its performance characteristics determined by [facility] [employer]. It has not been cleared or approved [...] and 39 years old. ashley Torres.al. JCEM 2017,102;0768-5089 PMID: [id number]. Adult Females Premenopausal 10-55 Postmenopausal 7-40 Reason For Referral No Information Medications Medication SIG (Take, Route, Frequency, Duration) Notes Start Date End Date Status Fish Oil Active Fiber Not-Taking /PRN Magnesium Active Needle (Disp) 22G X 1-1/2 Miscellaneous as directed for drawing up medication and administering; Duration: 90 days Active Loratadine Active BD Syringe Luer-Bladimir 1 ML Miscellaneous as directed; Duration: 90 days 01/18/2024 Active Multivitamin Not-Ilya ing/PRN Simethicone Active Acetaminophen Active Vitamin B2 Active Escitalopram Oxalate Active BD Syringe/Needle 22G X 1-1/2 3 ML Miscellaneous as directed IM weekly; Duration: 90 days 05/02/2024 Active Estradiol Valerate 20 MG/ML Oil 0.3 mL Intramuscular Once weekly; Duration: 90 days 01/18/2024 Active metFORMIN HCl Active Prometrium 100 MG Capsule as directed Orally Once daily at bedtime; Duration: 90 days 10/12/2024 Active Sharps Container - Miscellaneous as directed; Duration: 90 days 01/18/2024 Active Easy Comfort Alcohol Pads - Pad as directed; Duration: 90 days 01/18/2024 Active BD Disp [place] 19G X 1 Miscellaneous used to draw up medication; Duration: 90 days 05/02/2024 Active Social History Sex Assigned At : Social History Observation Description Sex Assigned At Male Social History HIV Risk Assessment Social Info Question Answer Notes Additional Questions Is an HIV Risk Asse ssment being conducted? No Reproductive Life Plan: Social Info Question Answer Notes Reproductive Life Plan: Do you want to have chil dren? No, I don't want to have children How sure are you that you will be able to use your control method without any problems? Very sure People's plans change. Is it possible you or your partner could ever decide to become ? No Human Trafficking: Social Info Question Answer Notes Human Trafficking Experienced: No PrEP for HIV: Social Info Question Answer Notes PrEP for HIV Is the client intere sted in beginning/continuing PrEP for HIV? No Sexual History: Social Info Question Answer Notes Sexual History: Sexual History Reviewed: Partner s, Practices, Protection/Past STIs Currently sexually active? No When was the last time you were sexually active? 05/25/2022 Number of partners in past 3 months: 0 Number of partners in past year: 0 Counseling Provided: Social Info Question Answer Notes Counseling Provided Please indicate the length of time, in minutes, that counseling was provided. 5 Counseling Was Provided By: sawyer Drugs/Alcohol: Social Info Question Answer Notes Drug/Alcohol Use Do you or have you used drugs? Yes, c urrently By what route are you taking drugs? Please check all that apply: Smoking Which drug(s) do you smoke? Marijuana When did you last use? Do you want to quit drugs? No Do you or have you used alcohol? Yes, currently Socially per client Food Access: Social Info Question Answer Notes Food Access The Client's current access to food is Secure Food Access Gender Affirming Hormone Car e Social Info Question Answer Notes Gender Affirming Hormone Care: How do you describe your gender identity? Select all that apply Other (please describe) salmacian How would you prefer to talk about or refer to your body? (Describe in notes.) anatomical terms okay What experience do you have with gender affirming care, if any? None What are your goals with seeking gender affirming care? Hormonal transition (describe in notes), Social transition (describe in notes), Gender affirming surgery (describe in notes) While hormonal treatment is not contraception, it can have an impact on fertility. Is this something you would like to plan for? No not planning to have any children Housing Social Info Question Answer Notes Housing The client's current living situation is: stable housing Tobacco Use: Social Info Question Answer Notes Tobacco Use: Do you/have you used tobacco? 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 Vital Signs Blood pressure diastolic 78 mm Hg 01/04/2025 Height 5'9 in 01/04/2025 Blood pressure systolic 142 mm Hg 01/04/2025 Weight 267.3 lbs 01/04/2025 BMI 39.47 kg/m2 01/04/2025 Encounters Encounter Location Date Provider Diagnosis [facility] [address] [place] [address] [id number] 04/18/2024 CALE GABAI Hormone replacement therapy Z79.890 [facility] [address] [place] [address] [id number] 07/13/2024 CALE GABAI Other gender identit y disorders F64.8 and Hormone replacement therapy Z79.890 [facility] [address] [place], [place] [id number] 07/20/2024 RAFAEL NEO Gender identity disorder, unspecified F64.9 and Hormone replacement therapy Z79.890 [facility] [address] [place] [address] [id number] 09/23/2024 CALE GABAI Gender identity disorder, unspecified F64.9 [facility] [address] [place] [address] [id number] 10/12/2024 RAFAEL NEO Gender identity disorder, unspecified F64.9 and Hormone replacement therapy Z79.890 [facility] [address] [place] [address] [id number] 12/21/2024 RAFAELLORI LARSON [facility] [address] [place] [address] [id number] 01/04/2025 RAFAEL NEO Gender identity disorder, unspecified F64.9 and Hormone replacement therapy Z79.890 [facility] [address] [place] [address] [id number] 04/18/2024 CALE GABAI Gender identity disorder, unspecified F64.[address] [id number] 07/20/2024 [facility] [id number] 10/12/2024 [facility] [address] [id number] 01/04/2025 RAFAEL LARSON Assessments Encounter Date Diagnosis [...] Other gender identity disorders (ICD-10 - F64.8) 07/20/2024 Gender identity disorder, unspecified (ICD-10 - [...] Risk Document low risk of morbidity/mortal ity 07/13/2024 Hormone replacement therapy (ICD-10 - Z79.890) Plan Of Treatment Future Test Test Name Order Date Estradiol-[id number] 03/15/2025 Testosterone,All genders-[id number] 03/15/20 Next Appt Details Provider Name:RAFAEL LARSON, 11:00:00 AM, Casandra Marino [place], [phone], Provider Name:RAFAEL LARSON, 09/2024 11:00:00 AM, Casandra Marino [place], [phone], Insurance Providers Payer Name Payer Address Payer Phone Subscriber Number Group Number Insured Name Patient Relationship to Insured Coverage Start Date Coverage End Date [place] [address] [place] [address] [id number] Alvin Webb Self - patient is the [...]
[2025-02-27 15:07] VITALS: BMI 38.8
== END 2025-02-20 14:11 | disposition home or self-care (01) ==
LOC: HO.ENCR 13:04
PROVIDERS: PCP Internal Medicine; Visit Provider Dietitian, Registered
DX: E78.5 Hyperlipidemia, unspecified (principal)

== ENCOUNTER → 2025-02-20 13:04 | Outpatient (BNVA) | payer OTHER, SELFPAY | PROVIDERS: PCP Internal Medicine; Visit Provider Dietitian, Registered | DX: Z71.3 Dietary counseling and surveillance (principal); E78.5 Hyperlipidemia, unspecified | CPT/HCPCS: 97802 ==

== ENCOUNTER 2025-02-28 06:21 | Outpatient (REF) | payer OTHER, SELFPAY ==
--- OUTSIDE RECORDS SUMMARY | 2024-09-28 06:00 | XMS_ITS ---
Author Organization [facility] Address [address] [place] [phone] Care Team Providers Care Foot Worker Name Role Phone RAFAEL LARSON Unavailable [phone] REASON FOR VISIT [facility] Social History Sex Assigned At : Social History Observation Description Sex Assigned At Male Encounters Encounter Location Date Provider Diagnosis [address] [phone] 11/2024 RAFAEL LARSON Plan Of Treatment Next Appt Details Provider Name:RAFAEL LARSON, 11:00:00 AM, [address] [place] [address], [phone], Provider Name:RAFAEL LARSON, 09/2024 11:00:00 AM, [address] [place] [address], [phone], Progress Notes * Alvin LEWISDOB:1985 (39 yo M)Acc No.[id number]:09/28/2024 LAB Patient: Solo hunterAlvin Provider: Brittney LARSON :1985 A ge:38 Y S ex:Male Date:09/28/2024 Address:[address] [place] [address], [address], [place], [id number] Subjective: * Chief Complaints: * G AH labs * Electronic signature of CHE LARSON CNM on 02/28/2025 at 06:23 AM EDT Sign off status: Pending * Provider: Brittney LARSON Date: 0 09/28/2024 Generated for Mervin lucero/Faxing/eTransmitting on: 1 06:23 AM EDT
--- NOTE | ~2025-02-28 | FL_ITS ---
EXAMINATION: FL GUIDANCE ONLY HISTORY: M47.816 - Spondylosis without myelopathy or radiculopathy, lumbar region COMPARISON: None available. TECHNIQUE: Fluoroscopy time: 51.8 seconds. Cumulative Dose: 19.01 mGy. Images: 12. FINDINGS: Fluoroscopic spot films of the lumbar spine demonstrate needles and contrast material in the regions of the bilateral L3-4, L4-5, and L5-S1 facet joints. FL/FL guidance in treatment room IMPRESSION: Fluoroscopy during procedure. Please see procedure report for additional information. Electronically signed by: Oleg Tinajero MD 02/28/2025 01:38 PM EDT
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
--- OUTSIDE RECORDS SUMMARY | 2025-02-28 06:23 | XMS_ITS | Patient Health Record ---
Author Organization [facility] Address [address] [facility] [address] [place], [place] [id number] Care Team Providers Care Cushion Stuffer Name Role Phone ANDRIYCALE Rush Unavailable [phone] RAFAEL LARSON Unavailable [phone] Allergies No Known Allergies Results Component Value Reference Range Flag Notes Testosterone,All genders-540 005 Reviewed date:01/05/2025 01:59:50 PM Interpretation:3.9 Performing Lab:[facility], [address] [place] [address], Phone - [phone], Director - [facility] Notes/Report: Testosterone, All genders 3.9 This test [...] and 39 years old. Melissa, et.al. JCEM 2017,102;1166-3521 PMID: [id number]. Adult Females Premenopausal 10-55 Postmenopausal 7-40 Estradiol-[id number] Reviewed date:12/23/2024 12:36:46 PM Interpretation:370 Performing Lab:[facility] [place], [address] [place] [address], Phone - [phone], Director - Dequan Notes/Report: Estradiol 370.0 7.6-42.6 pg/mL H Deshaun ECLI A methodology Testosterone,All genders-540 005 Reviewed date:10/03/2024 10:37:14 AM Interpretation:3.3 Performing Lab:[facility], [address] [place] [address], Phone - [phone], Director - [facility] Notes/Report: Testosterone, All genders 3.3 This test was developed and its performance characteristics determined by [facility]. It has not been cleared or approved [...] 20-38 Adult Males >18 years [phone] This [facility] LC/MS-MS method is currently certified by the CDC Hormone Standardization Program (HoST). Adult male reference interval is based on a population of healthy nonobese males (BMI <30) between 19 and 39 years old. Melissa et.al. JCEM 2017,102;5982-5690 PMID: [id number]. Adult Females Premenopausal 10-55 Postmenopausal 7-40 Estradiol-[id number] Reviewed date:09/25/2024 08:20:36 AM Interpretation:196 Performing Lab:[facility] [place], [address] [place] [address], Phone - [phone], Director - Dequna Notes/Report: Estradiol 196.0 7.6-42.6 pg/mL H Deshaun ECLI A methodology Testosterone,All genders-540 005 Reviewed date:07/21/2024 09:06:38 AM Interpretation:4.8 Performing Lab:[facility], [address] [place] [address], Phone - [phone], Director - Curt Notes/Report: Testosterone, All genders 4.8 This test was developed and its performance characteristics determined by [facility]. It has not been cleared or approved [...] 20-38 Adult Males >18 years [phone] This [employer] LC/MS-MS method is currently certified by the CDC Hormone Standardization Program (HoST). Adult male reference interval is based on a population of healthy nonobese males (BMI <30) between 19 and 39 years old. Melissa, et.al. JCEM 2017,102;9624-7037 PMID: [id number]. Adult Females Premenopausal 10-55 Postmenopausal 7-40 Estradiol-108389 Reviewed date:07/14/2024 10:03:37 AM Interpretation:432, elevated Performing Lab:[facility] [place], [address] [place] [address], Phone - [phone], Director - Dequan Notes/Report: Estradiol 432.0 7.6-42.6 pg/mL H Deshaun ECLI A methodology Testosterone,All genders-540 005 Reviewed date:05/02/2024 07:06:57 PM Interpretation:3.9 Performing Lab:[facility], [address] [place] [address], Phone - [phone], Director - [facility] Notes/Report: Testosterone, All genders 3.9 This test was developed and its performance characteristics determined by [employer]. It has not been cleared or approved [...] 20-38 Adult Males >18 years [phone] This [employer] LC/MS-MS method is currently certified by the CDC Hormone Standardization Program (HoST). Adult male reference interval is based on a population of healthy nonobese males (BMI <30) between 19 and 39 years old. Melissa et.al. JCEM 2017,102;2265-0058 PMID: [id number]. Adult Females Premenopausal 10-55 Postmenopausal 7-40 Lipid Panel-[id number] Reviewed date:04/19/2024 02:31:40 PM Interpretation:Abnormal Performing Lab:[facility] [place], [address] [facility], Phone - [phone], Director - Dequan Notes/Report: Cholesterol, Total 151 100-199 mg/dL Triglycerides 301 0-149 mg/dL H HDL Cholesterol 21 >39 mg/dL L VLDL Cholesterol Ab 50 5-40 mg/dL H LDL Chol Calc ([facility]) 80 0-99 mg/dL Estradiol-[id number] Reviewed date:04/19/2024 07:11:15 PM Interpretation:Normal Performing Lab:[facility] [place], [address] [facility], Phone - [phone], Director - Dequan Notes/Report: Estradiol 122.0 7.6-42.6 pg/mL H Deshaun ECLI A methodology Reason For Referral No Information Medications Medication [...] Duration: 90 days 01/18/2024 Active BD Disp Thorofare 19G X 1 Miscellaneous used to draw [...] Notes Problem 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 Problem Gender identity disorder (96308180) Gender identity disorder, 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 Vital Signs Blood pressure diastolic 78 mm Hg 01/04/2025 Height 5'9 in 01/04/2025 Blood pressure systolic 142 mm Hg 01/04/2025 Weight 267.3 lbs 01/04/2025 BMI 39.47 kg/m2 01/04/2025 Encounters Encounter Location Date Provider Diagnosis [facility] [address] [place] [address] [id number] 04/18/2024 CALE GABAI Hormone replacement therapy Z79.890 [facility] [address] [place] [address] [id number] 07/13/2024 CALE GABAI Other gender identit y disorders F64.8 and Hormone replacement therapy Z79.890 [facility] [address] [place], [place] [id number] 07/20/2024 RAFAEL NEO Gender identity disorder, unspecified F64.9 and Hormone replacement therapy Z79.890 [facility] [address] [place] [address] [id number] 09/23/2024 CALE GABAI Gender identity disorder, unspecified F64.9 [facility] [address] [place] [address] [id number] 10/12/2024 RAFAEL NEO Gender identity disorder, unspecified F64.9 and Hormone replacement therapy Z79.890 [facility] [address] [place] [address] [id number] 12/21/2024 RAFAELLORI LARSON [facility] [address] [place] [address] [id number] 01/04/2025 RAFAEL NEO Gender identity disorder, unspecified F64.9 and Hormone replacement therapy Z79.890 [facility] [address] [place] [address] [id number] 04/18/2024 CALE GABAI Gender identity disorder, unspecified F64.[address] [id number] 07/20/2024 [facility] [id number] 10/12/2024 [facility] [address] [id number] 01/04/2025 RAFAEL LARSON Assessments Encounter Date Diagnosis [...] Treatment Future Test Test Name Order Date Estradiol-[id number] 03/15/2025 Testosterone,All genders-[id number] 03/15/20 Next Appt Details Provider Name:RAFAEL LARSON, 11:00:00 AM, Casandra Marino [place], [phone], Provider Name:RAFAEL LARSON, 09/2024 11:00:00 AM, Casandra Marino [place], [phone], Insurance Providers Payer Name Payer Address Payer Phone Subscriber Number Group Number Insured Name Patient Relationship to Insured Coverage Start Date Coverage End Date [place] [address] [place] [address] [id number] Alvin Webb Self - patient is the [...]
== END 2025-02-28 06:22 | disposition home or self-care (01) ==
LOC: CF 06:21
PROVIDERS: Visit Provider Anesthesiology
DX: M47.816 Spondylosis without myelopathy or radiculopathy, lumbar region (principal)
CPT/HCPCS: 64493; 64494; J2003; J2795; Q9967

== ENCOUNTER 2025-02-28 10:47 | Outpatient (AMB) | payer OTHER, SELFPAY ==
[2025-02-28 11:06] VITALS: BP 119/64; PULSE 80; RESP 16; O2SAT 96; BMI 38.8
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
[2025-02-28 12:03] VITALS: BP 114/65; PULSE 94; RESP 16; O2SAT 96
== END 2025-02-28 12:05 | disposition home or self-care (01) ==
LOC: HO.PMCPRC 10:47
PROVIDERS: PCP Internal Medicine; Visit Provider Anesthesiology
DX: M47.816 Spondylosis without myelopathy or radiculopathy, lumbar region (principal)
CPT/HCPCS: 64493; 64494

== ENCOUNTER 2025-03-03 13:09 | Outpatient (AMB) | payer OTHER, SELFPAY ==
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
[2025-03-03 13:16] VITALS: BP 142/75; PULSE 88; O2SAT 97; BMI 39.1
== END 2025-03-03 13:54 | disposition home or self-care (01) ==
LOC: HO.PMC 13:09
PROVIDERS: PCP Internal Medicine; Visit Provider Nurse Practitioner Family
DX: M54.9 Dorsalgia, unspecified (principal); G89.29 Other chronic pain; M47.816 Spondylosis without myelopathy or radiculopathy, lumbar region
CPT/HCPCS: 99213

== ENCOUNTER → 2025-03-03 13:09 | Outpatient (BNVA) | payer OTHER, SELFPAY | PROVIDERS: PCP Internal Medicine; Visit Provider Nurse Practitioner Family | DX: M47.816 Spondylosis without myelopathy or radiculopathy, lumbar region (principal); G89.29 Other chronic pain | CPT/HCPCS: 99212 ==

== ENCOUNTER 2025-04-27 12:58 | Outpatient (AMB) | payer OTHER, SELFPAY ==
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
[2025-04-27 13:07] VITALS: BMI 39.1
== END 2025-04-27 13:51 | disposition home or self-care (01) ==
LOC: HO.ENCR 12:58
PROVIDERS: PCP Internal Medicine; Visit Provider Dietitian, Registered
DX: E78.5 Hyperlipidemia, unspecified (principal)

== ENCOUNTER → 2025-04-27 12:58 | Outpatient (BNVA) | payer OTHER, SELFPAY | PROVIDERS: PCP Internal Medicine; Visit Provider Dietitian, Registered | DX: E78.5 Hyperlipidemia, unspecified (principal); Z71.3 Dietary counseling and surveillance | CPT/HCPCS: 97803 ==

== ENCOUNTER 2025-05-01 08:57 | Outpatient (AMB) | payer OTHER, SELFPAY ==
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
[2025-05-01 09:01] VITALS: BP 128/80; PULSE 83; O2SAT 97; BMI 39.9
== END 2025-05-01 09:22 | disposition home or self-care (01) ==
PROVIDERS: PCP Internal Medicine; Visit Provider Psychiatry & Neurology Neurology
DX: G47.33 Obstructive sleep apnea (adult) (pediatric) (principal); R41.89 Other symptoms and signs involving cognitive functions and awareness; D35.2 Benign neoplasm of pituitary gland
CPT/HCPCS: 99214

== ENCOUNTER → 2025-05-01 08:57 | Outpatient (BNVA) | payer OTHER, SELFPAY | PROVIDERS: PCP Internal Medicine; Visit Provider Psychiatry & Neurology Neurology | DX: G47.33 Obstructive sleep apnea (adult) (pediatric) (principal); F09 Unspecified mental disorder due to known physiological condition; D35.2 Benign neoplasm of pituitary gland; F41.9 Anxiety disorder, unspecified; Z79.899 Other long term (current) drug therapy; R51.9 Headache, unspecified; Z99.89 Dependence on other enabling machines and devices | CPT/HCPCS: 99212 ==

== ENCOUNTER 2025-05-02 12:09 | Outpatient (AMB) | payer OTHER, SELFPAY ==
[2025-05-02 13:32] VITALS: BP 133/78; PULSE 88; RESP 16; O2SAT 97; BMI 39.9
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
[2025-05-02 14:49] VITALS: BP 138/85; PULSE 81; RESP 16; O2SAT 99
== END 2025-05-02 14:46 | disposition home or self-care (01) ==
LOC: HO.PMCPRC 12:09
PROVIDERS: PCP Internal Medicine; Visit Provider Anesthesiology
DX: M47.816 Spondylosis without myelopathy or radiculopathy, lumbar region (principal)
CPT/HCPCS: 64493; 64494

== ENCOUNTER 2025-05-05 14:00 | Outpatient (AMB) | payer OTHER, SELFPAY ==
--- OUTSIDE RECORDS SUMMARY | 2024-07-19 08:45 | XMS_ITS ---
Author Organization [facility] Address [address] [place] [address] Care Team Providers Care Surveillance Camera Technician Name Role Phone CALE MCCURDY Unavailable [phone] REASON FOR VISIT [facility] follow up Social History Sex Assigned At : Social History Observation Description Sex Assigned At Male Encounters Encounter Location Date Provider Diagnosis [facility] [address] [place] [address] [address] [address], [place] [phone] 07/19/2024 CALE MCCURDY Plan Of Treatment Next Appt Details Provider Name:RAFAEL LARSON, 11:00:00 AM, [address] [place] [address], [phone], Provider Name:RAFAEL LARSON, 10/2025 11:00:00 AM, [address] [place] [address], [phone], Progress Notes * Alvin LEWISDOB:1985 (39 yo M)Acc No.[id number]:07/19/2024 Gender affirming hormones fo llow up visit Patient: Alvin Li Provider: Emmanuel Mccurdy NP :1985 A ge:38 Y S ex:Male Date:07/19/2024 Address:[address] [place] [address], [address], [place], [id number] Subjective: * Chief Complaints: * G AH follow up * Electronic signature of LAKSHMI MCCURDY NP on 05/05/2025 at 07:23 PM EST Sign off status: Pending * Provider: Emmanuel Mccurdy NP Date: 0 07/19/2024 Generated for Mervin lucero/Feliberto/Maverick on: 1 07/06/2024 07:23 PM EST
--- OUTSIDE RECORDS SUMMARY | 2024-09-28 05:00 | XMS_ITS ---
Author Organization [facility] Address [address] [place] [address] Care Team Providers Care Wafer Fab Technician Name Role Phone RAFAEL LARSON Unavailable [phone] REASON FOR VISIT [facility] labs Social History Sex Assigned At : Social History Observation Description Sex Assigned At Male Encounters Encounter Location Date Provider Diagnosis [facility] [phone] 11/2024 RAFAEL LARSON Plan Of Treatment Next Appt Details Provider Name:RAFAEL LARSON, 11:00:00 AM, [address] [place] [address], [phone], Provider Name:RAFAEL LARSON, 10/2025 11:00:00 AM, [address] [place] [address], [phone], Progress Notes * Alvin LEWISDOB:1985 (39 yo M)Acc No.[id number]:09/28/2024 LAB Patient: Solo daleAlvin Provider: Brittney LARSON :1985 A ge:38 Y S ex:Male Date:09/28/2024 Address:[address] [place] [address], [address], [id number] Subjective: * Chief Complaints: * G AH labs * Electronic signature of CHE LARSON CNM on 05/05/2025 at 07:23 PM EST Sign off status: Pending * Provider: Brittney LARSON Date: 0 09/28/2024 Generated for Mervin lucero/Felibetro/eTransmitting on: 1 07/06/2024 07:23 PM EST
--- OUTSIDE RECORDS SUMMARY | 2025-03-15 06:00 | XMS_ITS ---
Author Organization [facility] Address [address] [place] [address] Care Team Providers Care Bottle Assembler Name Role Phone RAFAEL LARSON Unavailable [phone] REASON FOR VISIT [facility] labs Medications Medication SIG (Take, Route, Frequency, Duration) Notes Start Date End Date Status Needle (Disp) 22G X 1-1/2 Miscellaneous as directed for drawing up medication and administering; Duration: 90 days Active BD Syringe/Needle 22G X 1-1/2 3 ML Miscellaneous as directed IM weekly; Duration: 90 days 05/02/2024 Active Prometrium 100 MG Capsule as directed Orally Once daily at bedtime; Duration: 90 days 10/12/2024 Active Estradiol Valerate 20 MG/ML Oil 0.3 mL Intramuscular Once weekly; Duration: 90 days 01/18/2024 Active BD Syringe Luer-Bladimir 1 ML Miscellaneous as directed; Duration: 90 days 01/18/2024 Active Sharps Container - Miscellaneous as directed; Duration: 90 days 01/18/2024 Active metFORMIN HCl Active BD Disp [place] 19G X 1 Miscellaneous used to draw up medication; Duration: 90 days 05/02/2024 Active Easy Comfort Alcohol Pads - Pad as directed; Duration: 90 days 01/18/2024 Active Multivitamin Not-Ilya ing/PRN Vitamin B2 Active Loratadine Active Magnesium Active Fiber Not-Taking /PRN Escitalopram Oxalate Active Acetaminophen Active Simethicone Active Fish Oil Active Social History Sex Assigned At : Social History Observation Description Sex Assigned At Male Encounters Encounter Location Date Provider Diagnosis [facility] [address] [place], [place] [id number] RAFAEL LARSON Plan Of Treatment Next Appt Details Provider Name:RAFAEL SHARPY, 11:00:00 AM, [address] [place] [address], [phone], Provider Name:RAFAEL LARSON, 10/2025 11:00:00 AM, [address] [place] [address], [phone], Progress Notes * LEWIS, AlvinDOB:1985 (39 yo M)Acc No.[id number]:03/15/2025 LAB Patient: Alvin Li Provider: Brittney LARSON :1985 A ge:39 Y S ex:Male Date:03/15/2025 Address:[address] [place] [address], [id number] Subjective: * Chief Complaints: * G AH labs * Medications: T akingFish Oil Simethicone Acetaminophen Vitamin B2 Escitalopram Oxalate Magnesium Loratadine metFORMIN HCl Sharps Container - Miscellaneous as directed Easy Comfort Alcohol Pads - Pad as directed BD Disp [place] 19G X 1 Miscellaneous used to draw up medication BD Syringe/Needle 22G X 1-1/2 3 ML Miscellaneous as directed IM weekly Needle (Disp) 22G X 1-1/2 Miscellaneous as directed for drawing up medication and administering BD Syringe Luer-Bladimir 1 ML Miscellaneous as directed Estradiol Valerate 20 MG/ML Oil 0.3 mL Intramuscular Once weekly Prometrium 100 MG Capsule as directed Orally Once daily at bedtime Taking Fish Oil Taking Simethicone Taking Acetaminophen Taking Vitamin B2 Taking Escitalopram Oxalate Taking Magnesium Taking Loratadine Taking metFORMIN HCl Taking Sharps Container - Miscellaneous as directed Taking Easy Comfort Alcohol Pads - Pad as directed Taking BD Disp [place] 19G X 1 Miscellaneous used to draw up medication Taking BD Syringe/Needle 22G X 1-1/2 3 ML Miscellaneous as directed IM weekly Taking Needle (Disp) 22G X 1-1/2 Miscellaneous as directed for drawing up medication and administering Taking BD Syringe Luer-Bladimir 1 ML Miscellaneous as directed Taking Estradiol Valerate 20 MG/ML Oil 0.3 mL Intramuscular Once weekly Taking Prometrium 100 MG Capsule as directed Orally Once daily at bedtime Not-Taking/PRNFiber Multivitamin Not-Taking/PRN Fiber Not-Taking/PRN Multivitamin * Electronic signature of CHE LARSON CNM on 05/05/2025 at 07:23 PM EST Sign off status: Pending * Provider: Brittney LARSON Date: 1 Generated for Mervin lucero/Feliberto/Maverick on: 07/06/2024 07:23 PM EST
--- OUTSIDE RECORDS SUMMARY | 2025-05-04 11:00 | XMS_ITS | Encounter Summary ---
Author Organization [employer] Address [address] [place] [address] Care Team Providers Care Accounting Manager Name Role Phone Lynn Treviño MD Primary Care Provider [phone] Reason for Visit * Reason Comments Leg Swelling Encounter Details Date Type Department Care Team ([facility] Contact Info) Description 05/04/2025 11:00 AM EST Office Visit Vascular Surgery - [place] [address] [facility] [address] [place] [phone] Janessa Jones PA [address] [place] [address] [phone] Leg edema (Primary Dx) Social History Tobacco Use Types Packs/Day Years [...] care for your loved ones. For example, child's nurse or elderly care for an older adult? [...] Sex Male 8:50 PM EST Gender Identity Not Listed 04/19/2024 2:08 PM EST Sexual Orientation Bisexual 08/12/2024 11 :00 AM EDT documented as of this encounter Last Filed Vital Signs Vital Sign Reading Time Taken Comments Blood Pressure 100/60 05/04/2025 10:35 AM EST Pulse 80 05/04/2025 10:35 AM EST Temperature - - Respiratory Rate 16 05/04/2025 10:35 AM EST Oxygen Saturation - - Inhaled Oxygen Concentration - - Weight 121 kg (266 lb) 05/04/2025 10:35 AM EST Height 175.3 cm (5' 9 ) 05/04/2025 10:35 AM EST Body Mass Index 39.28 05/04/2025 10:35 AM EST documented in this encounter Progress Notes * KALEN Barry - 05/04/2025 11:00 AM EST PATIENT: Alvin Webb ENCOUNTER: 05/04/2025 EMRN: [id number] : 1985 PCP: Lynn Treviño MD CHIEF COMPLAINT: Leg Swelling HPI: This 39 y.o. adult presents for follow up leg swelling. Patient was seen by Dr. Pickard in December 2024 for evaluation of bilateral leg swelling that had been occurring for ~6 months. The swelling was mostly at the ankles but also chcf up to calves which was preventing him from zipping up his boots. No history of heart, lung or liver conditions. Patient is on estradiol. He previously had venous duplex which was negative for DVT. Since patient's initial visit, he feels the swelling has minimized. He continues to feel that his boots are tight. He obtained prescription grade compression stockings but they were too tight and didnot wear them. He had venous reflux study performed, see findings below. PAST MEDICAL HISTORY: Problem List[1] PAST SURGICAL HISTORY: Surgical History[2] MEDICATIONS: Medications Taking[3] ALLERGIES: Current Allergies[4] SOCIAL HISTORY: Social History[5] FAMILY HISTORY: Family History[6] ROS: GENERAL: No malaise, significant weight loss or fever NECK: No lumps, goiter, pain or significant neck swelling RESPIRATORY: No cough, wheezing or shortness of breath CARDIAC: No chest pain or palpitations GI: No abdominal discomfort MUSCULOSKELETAL: SEE HPI SKIN: No lesions, rash or itching NEURO: No persistent headache, syncope, seizures, weakness or numbness VASCULAR: SEE HPI PHYSICAL EXAM: Vitals: 05/04/25 1035 BP: 100/60 Pulse: 80 Resp: 16 Weight: 121 kg (266 lb) Height: 1.753 m (69 ) General: Alert and oriented x 3, no acute distress, well-nourished HEENT: Normocephalic atraumatic Neck: No JVD Chest: Respiratory effort normal Cardiac: Regular rate rhythm Abdomen: Soft, nontender, nondistended, no widened aortic pulse Extremities: -Right upper extremity: 2+ radial artery pulses palpable. -Left upper extremity: 2+ radial artery pulses palpable. -Right lower extremity: 2+ DP pulse palpable. No major varicosities. No ulcers or gangrene. No hyperpigmentation. No induration or inflammation. Mild non pitting edema of the leg. -Left lower extremity: 2+ DP pulse palpable. No major varicosities. No ulcers or gangrene. No hyperpigmentation. No induration or inflammation. Mild non pitting edema of the leg. Integumentary: No wounds Neuro: Grossly intact DIAGNOSTIC TESTING: Bilateral lower extremity venous reflux, 04/10/25: RIGHT. 1. No evidence of deep vein thrombosis. 2. The saphenofemoral junction, common femoral, femoral, and popliteal veins are competent. 3. No superficial venous thrombosis. 4. No venous reflux noted in the small saphenous vein. 5. No venous reflux noted in the greater saphenous vein. LEFT. 1. No evidence of deep vein thrombosis. 2. The saphenofemoral junction and common femoral are competent. The mid femoral and and popliteal veins have 0.5-0.6 seconds of reflux 3. No superficial venous thrombosis. 4. No venous reflux noted in the small saphenous vein. 5. No venous reflux noted in the greater saphenous vein. 6. Mid calf GSV branch with 0.8 seconds of reflux. I independently reviewed the studies along with the images. ASSESSMENT: 1. Leg edema PLAN: 39 y.o. adult with bilateral lower extremity edema of unknown etiology. We reviewed venous reflux study which was negative for DVT. There was no deep or superficial reflux within the right lower extremity. Mild reflux within mid femoral, popliteal, GSV junction and mid calf GSV branch was seen. No i ntervention warranted. Recommend trial of OTC knee high compression stockings. Additionally, recommend leg elevation, daily exercise, weight loss. Patient to follow up with vascular surgery as needed. We discussed the natural pathophysiology of venous disease. I spent 30 minutes in an encounter withthis patient, including time spent with patient, chart review, reviewing diagnostic studies, and documentation. [1] Patient Active Problem List Diagnosis Abnormal MRI of head Acute nonintractable headache Bilateral hearing loss Bilateral hip pain Brain fog Chronic bilateral low back pain without sciatica Ear fullness, bilateral Gets lost in familiar location Hyperlipidemia Mediastinal mass Memory loss Obesity (BMI 30-39.9) Pituitary abnormality (CMS/HCC V24) Pituitary microadenoma (CMS/HCC V24, CMS/HCC V28) PTSD (post-traumatic stress disorder) Pure hypertriglyceridemia Snores Thymic cyst (CMS/HCC V24) Weakness of both upper extremities Type 2 diabetes mellitus (CMS/HCC V24, CMS/HCC V28) Word finding difficulty Numbness and tingling in both hands Anxiety and depression Cervical spondylosis with radiculopathy Gait instability [2] Past Surgical History: Procedure Laterality Date THORACIC DISC SURGERY [3] Outpatient Medications Marked as Taking for the 05/04/25 encounter (Office Visit) with KALEN Barry Medication Sig Dispense Refill acetaminophen (TYLENOL) 500 mg tablet Take by mouth every 6 (six) hours if needed for mild pain. ARIPiprazole (ABILIFY) 2 mg tablet cholecalciferol (Vitamin D3) 50 mcg (2,000 unit) capsule Take 1 capsule (2,000 Units total) by mouth 1 (one) time each day. 30 each 11 escitalopram (LEXAPRO) 10 mg tablet Take 1 tablet (10 mg total) by mouth 1 (one) time each day. Prescribe by [place] [facility] estradiol valerate (DELESTROGEN) 20 mg/mL injection Inject 0.25 mL (5 mg total) into the shoulder, thigh, or buttocks every 28 (twenty-eight) days. loratadine (CLARITIN) 10 mg tablet Take 1 tablet (10 mg total) by mouth 1 (one) time each day. metFORMIN (GLUCOPHAGE) 500 mg tablet TAKE ONE TABLET BY MOUTH ONCE DAILY WITH BREAKFAST 90 tablet 1 OMEGA-3 FATTY ACIDS ORAL Take by mouth. prazosin (MINIPRESS) 1 mg capsule progesterone (PROMETRIUM) 100 mg capsule riboflavin (VITAMIN B2) 100 mg tablet Take 1 tablet (100 mg total) by mouth 1 (one) time each day. [4] No Known Allergies [5] Social History Tobacco Use Smoking status: Former Smokeless tobacco: Former [6] No family history on file. documented in this encounter Plan of Treatment Not on file documented as of this encounter Visit Diagnoses Diagnosis Leg edema- Primary Edema documented in this encounter Additional Health Concerns Assessment Noted Time PHQ-9 Depression Total Score: 17 08/18/ 025 3:53 PM EDT documented as of this encounter Care Teams Accounting Manager Relationship Specialty Start Date End Date Lynn Treviño MD [address] [place] [address] PCP - General 10/01/22 documented as of this encounter
[2025-05-05 14:07] VITALS: BP 131/71; PULSE 94; RESP 16; O2SAT 96; BMI 39.0
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
--- OUTSIDE RECORDS SUMMARY | 2025-05-05 19:23 | XMS_ITS | Continuity of Care Document ---
Author Organization [place] - [facility], [facility] Address [address] [place] [address] Care Team Providers Care Service Center Appraiser Name Role Phone RICHARD MCINTOSH Primary Care Provider Assessment Encounter Date Assessment Date Assessment LastModified by Organization Details LastModified Time 03/09/2025 03/09/2025 Left ear remains well-healed following first stage removal of cholesteatoma. Patient has tympanostomy tubes present in both ears which are still patent. Today we discussed the need to begin the scheduling process for second stage surgery for cholesteatoma for the left ear. We discussed the fact that this procedure is required to rule out recurrent cholesteatoma within the middle ear or mastoid cavity. This will be carried out through a small incision with otoendoscopes. We discussed the risks, benefits, and complications associated with this surgery including the risks of bleeding, infection, tympanic membrane perforation, taste disturbance, temporary or permanent facial nerve paralysis or paresis, cerebrospinal fluid leak, encephalocele, temporary or permanent tinnitus, temporary or permanent conductive or sensorineural hearing loss, temporary or permanent balance disturbance. We also discussed the fact that if significant recurrent cholesteatoma is noted, further surgeries may be required to remove this. Occasionally, several surgeries are required to fully remove recalcitrant cholesteatomas. After full discussion, the patient would like to proceed with surgery. I have provided patient with the contact information for my rn burn. We will begin the scheduling process and see the patient back at the time of surgery. Patient will not require medical clearance from their primary care provider preoperatively. We will anticipate scheduling in March which would be 8 months after the original procedure. [email or web address] Not available 03/09/2025 10:17:42 Plan of Treatment Reminders Order Date Submit Date Provider Last Modified By Organization Details Last Modified Time Details Appointments None recorded. Lab None recorded. Referral None recorded. Procedures None recorded. Surgeries middle ear exploration through postauricul ar or ear canal incision (SURG) 2024 025 [email or web address] Not available 15:42:05 Imaging None recorded. Medication Orders None recorded. Patient TargetsNo targets recorded. Patient InstructionsNo instructions recorded. Reason for Referral None Reported. Problems Name Problem SNOMED Code Status Onset Date Resolution Date Notes Provider Name and Address Organization Details Recorded Time Conductive hearing loss, bilateral 886036586 Active 2023 Bibiana LARA [address] [facility],[address], [facility] [place], [address], [place] - [facility] 15:06:10 Dysfunction of eustachian tube 44632943 Active 2023 TONIA LEES MD [address] [facility], [place], [address], [place] - [facility] 5 20:30:56 Chronic mucoid otitis media 32892913 Active 2023 TONIA LEES MD [address] [facility], [address], [place], [address], [place] - [facility] 4 15:57:47 Conductive hearing loss of left ear 4230097178 Active 2023 TAMI CERVANTES [place], CCC-A [address] [facility], [address], [place], [address], [facility] - [facility] [place] [place] 4 11:29:00 Adhesive otitis media of left middle ear 9590691270420 102 Active 2023 TONIA LEES MD [address] [facility], [address], [place], [address], [place] - [facility] 4 11:21:51 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 2844346625048 107 Active 2024 TONIA LEES MD [address] [facility] E [facility] [place], [address], [facility] - [facility] 5 20:30:47 Ossicular erosion 4050590230312 4 Active 2024 TONIA LEES MD [address] [address], [place], [address], [facility] - [facility] 11:14:32 Granulation of tissue 279549721 Active 2024 TONIA LEES MD [address] [address], [place], [address], [facility] - [facility] 14:03:51 Otorrhea of left ear 9254660537756 108 Active 2024 TONIA LEES MD [address] [facility],[address] [address], [place], [address], [facility] - [facility] 14:04:05 Bilateral hearing loss 29459697 Active 2024 Bibiana LARA [address] [address], [place], [address], [facility] - [facility] 16:04:51 Problem Notes None recorded. Procedures Surgical History Date Name Laterality Status Provider Name and Address Organization Details Recorded Time 025 Comp Audio with Tymps - 26279 & 52243 completed Bibiana LARA [address] [facility],[address], [address], [facility] - [facility] 11/02/2024 16:01:52 025 EAC debris removal with microscope completed TONIA LEES MD [address] [facility],[address], [address], [facility] - [facility] 10/05/2024 14:08:[address] temporal bones - Xoran completed TONIA LEES MD [address] [facility],[address], [address], [facility] - [facility] 07/21/2024 11:13:34 024 Comp Audio with Tymps - 98556 & 45883 completed TAMI CERVANTES [place], CCC-A [address], [place], [address], [facility] - [facility] 01/07/2024 11:28:16 024 MYRINGOTOMY, BILATERAL, WITH EUSTACHIAN TUBE INFLATION (SURG) completed TONIA LEES MD [address],[facility] [address], [place], [address], [facility] - [facility] 07/21/2024 12:02:20 024 Comp Audio with Tymps - 40857 & 95537 completed Bibiana LARA [address] [facility],[address], [place], [address], [facility] - [facility] 10/22/2023 14:59:50 024 Fiberoptic Nasopharyngoscopy completed TONIA LEES MD [address] [facility] [address], [place], [address], [facility] - [facility] 10/22/2023 15:58:54 Thoracic surgery ss completed Triny Diaz [facility] [place] 10/22/2023 14:40:16 Imaging Results None recorded. Procedure Notes None recorded. Medical Equipment None Reported. Allergies No known drug allergies Medications Name Sig Start Date Stop Date Status Note LastModified by Organization Details LastModified Time metformin 500 mg tablet 1 tablet every day by oral route. 2024 active Not Available Not Available Not Avai lable Vitamin B-2 100 mg tablet 400 mg every day by oral route. 2023 active Not Available Not Available Not Avai lable simethicone 125 mg capsule 125 mg every day by oral route. 11/01 completed Not Available Not Available Not Available acetaminoph en 500 mg tablet Take 500 mg as needed by oral route. 11/02 completed Not Available Not Available Not Available ofloxacin 0.3 % ear drops INSTILL 5 DROPS INTO AFFECTED EAR TWICE DAILY FOR 14 DAYS 10/05 completed Not Available Not Available Not Available Tylenol 500 mg tablet Take 2 tablets every 6 hours by oral route. 01/05 completed Not Available Not Available Not Available acetaminoph en 500 mg capsule Take 2 capsules every 6 hours by oral route. active Not Available Not Available No t Available magnesium 250 mg (as magnesium oxide) tablet Take 240 mg every day by oral route. 10/05 completed Not Available Not Available Not Available tobramycin 0.3 %-dexametha sone 0.1 % eye drops,suspe nsion INSTILL 4 DROPS INTO AFFECTED EAR(S) BY OTIC ROUTE 2 TIMES PER DAY FOR 14 DAYS 11/02 completed Not Available Not Available Not Available oxycodone 5 mg tablet Take 1 tablet every 4-6 hours by oral route as needed for 3 days, for pain. 10/05 completed Not Available Not Available Not Available estradiol valerate 20 mg/mL intramuscul ar syringe 0.25 mL every week by intramusc . route. active Not Available Not Available No t Available escitalopra m 10 mg tablet 20 mg every day by oral route. 2024 active Not Available Not Available Not Avai lable progesteron e active Not Available Not Available Not Available fiber 10/05 completed Not Available Not Available Not Available multivitami n 11/02 completed Not Available Not Available Not Available loratadine 10 mg capsule Take by oral route. active Not Available Not Available No t Available Fish Oil 720 mg-1,200 mg capsule 1 capsule every day by oral route. active Not Available Not Available No t Available magnesium 400 mg (as magnesium oxide) tablet 240 mg every day by oral route. 2023 active Not Available Not Available Not Avai lable Vitals Date Recorded Body height Body mass index (BMI) Body weight Provider Name and Address Organization Details Last Updated DateTime 03/09/2025 175.26 cm 38.4 kg/m2 658424.02 g Triny Diaz [place] - [facility] 03/09/2025 10:01:39 Social History Question Answer Notes LastModified by Organizat ion Details LastModified Time Tobacco Smoking Status Former Smoker Triny shetty [place] - [facility] 10/22/2023 14:40:31 How Many Years Have You Consumed Alcohol? 99 [email or web address] Information not available 10/05/2024 What Type Of Circuit Board Drafter Do You Use? None [email or web address] Information not available 10/05/2024 How Many Alcoholic Drinks Do You Consume Per Day On Average? 2 [email or web address] Information not available 10/05/2024 When Did You Quit Smoking? 1-5yearssinc elastcigaret te [email or web address] Information not available 10/05/2024 What Is Your Current Pack Years? 30ormorepack years [email or web address] Information not available 10/05/2024 Do You Have Any Pets? No [email or web address] Information not available 10/05/2024 At What Age Did You Start Smoking Tobacco? 17 Information not available 10/05/2024 Are You Passively Exposed To Smoke? No [email or web address] Information not available 10/05/2024 Are There Any Smokers In Your House? No [email or web address] Information not available 10/05/2024 How Much Tobacco Do You Smoke? 0.5 PPD [email or web address] Information not available 10/05/2024 How Many Years Have You Smoked Tobacco? 15 [email or web address] Information not available 10/05/2024 How Many Years Have You Used E-cigarettes Or Vape? 3 [email or web address] Information not available 10/05/2024 Sex: Unknown Functional Status Question Answer Note LastModified by Organizat ion Details LastModified Time How many times per week do you consume alcohol? 5-7 times per week [email or web address] Information not available 11/02/2024 Do you use any illicit or recreational drugs? No [email or web address] Information not available 10/05/2024 Do you or have you ever used any other forms of tobacco or nicotine? Yes [email or web address] Information not available 10/05/2024 What is your level of alcohol consumption? Occasional [email or web address] Information not available 10/05/2024 Do you or have you ever used smokeless tobacco? 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 Current user of electronic cigarettes [email or web address] Information not available 11/02/2024 What type of noise exposure are you exposed to? Other [email or web address] Information not available 10/05/2024 Mental Status None recorded. Family History Nothing Reported. Medical History Condition Response Allergies/Hayfever N Heart Problems N Anxiety Y Tonsil Infections N Emphysema N Migraines Y Thyroid Problems N Glaucoma N Developmental Delay N Depression Y COPD N Nasal or Sinus Problems N Anemia N Immune System Disorder N Anesthesia Complications N Heart Attack ([place]) N Other Skin Condition N Diabetes Y Rhinitis N Bleeding Disorder N Food Allergy N Hearing Loss N Arthritis N Hyperlipidemia N Cancer N Stroke N Dementia N Nasal polyps N Asthma N Sleep Disorder Y High Cholesterol N GERD/Reflux N Liver Disease N Headaches Y Fibromyalgia N Hypertension N Speech Delay N Kidney Disease N Past Encounters Encounter ID Performer Location Encounter Start Date Encounter Closed Date Diagnosis/Indication Diagnosis SNOMED-CT Code Diagnosis ICD10 Code Diagnosis IMO Codes Diagnosis Note [id number] TONIA LEES MD [facility] [address] [address] 03/09/2025 09:47:53 03/09/2025 10:17:24 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 Will continue to monitor the right ear tube going forward. Health Concerns Section Related Observation LastModified by Organization Detai ls LastModified Time None Recorded Concern Status LastModified by Organization Details LastModified Time None Recorded Payers Encounter Date Sequence Insurance Name Policy Number Policy Smith Covered Member ID Smith Member ID Guarantor Name 03/09/2025 1 [facility] (MEDICAID HMO) RAKAN Alvin Webb [id number] Alvin Webb Notes Date Note Type Note Provider Name and Address Organization Details Recorded Time 03/09/2025 text/html Patient with history of left cholesteatoma who underwent first stage surgery in July 2024. Patient is also status post bilateral BDET with PE tube placement in November 2023.Patient is due for second stage surgery coming up in March to rule out recurrent or persistent cholesteatoma. He has been asymptomatic. Occasional mild blockage sensation in the ear but nothing consistent. No discharge. TONIA LEES MD [address] [place] [address], [place], [address], [facility] - [facility] 03/09/2025 10:18:22
--- OUTSIDE RECORDS SUMMARY | 2025-05-05 19:24 | XMS_ITS | Encounter Summary ---
Author Organization [employer] Address [address] [place] [address] Care Team Providers Care Building Illuminating Engineer Name Role Phone Lynn Treviño MD Primary Care Provider [phone] Encounter Details Date Type Department Care Team ([facility] st Contact Info) Description 04/19/2025 Results Follow-Up Adult Medicine [facility] [address] [place] [address] Lynn Treviño MD [address] [place] [address] Social History Tobacco Use Types Packs/Day Years [...] care for your loved ones. For example, children's ministries director or elderly care for an older [...] AM EDT documented as of this encounter Plan of Treatment Not on file documented as of this encounter Results * (ABNORMAL) Parathyroid hormone intact (04/24/2025 9:10 AM EST) PTH 118.9(H) 18.5 - 88.0 pcg/mL 04/24/2025 11:16 AM EST [facility] ([facility]) [facility] Blood Venous blood specimen / Unknown Venipuncture / Unknown 04/24/2025 9:10 AM EST 04/24/2025 10:14 AM EST Lynn Treviño MD LAB BLOOD ORDERABLES Final Result [facility] [address] [place] [address], [place] [phone] * (ABNORMAL) Vitamin D 25 hydroxy (04/24/2025 9:10 AM EST) Pathologist [facility] Vit D, 25-Hydroxy 17.6(L) 30.0 - 80.0 ng/mL 04/24/2025 11:19 AM EST [facility] Blood Venous blood specimen / Unknown Venipuncture / Unknown 04/24/2025 9:10 AM EST 04/24/2025 10:14 AM EST Lynn Treviño MD LAB BLOOD ORDERABLES Final Result Performing Organization Address [facility] Co de Phone Number [facility] [address] [place] [address], [place] [phone] * Calcium, ionized (04/24/2025 9:10 AM EST) [facility] Calcium Ionized 4.9 4.6 - 5.4 mg/dL 04/26/2025 9:21 AM EST [facility] Comment: Test performed at [facility], [address], [place] [address] Brandi Rincon MD, PhD - Melter Helper Blood Venous blood specimen / Unknown Venipuncture / Unknown 04/24/2025 9:10 AM EST 04/24/2025 10:14 AM EST Lynn Treviño MD LAB BLOOD ORDERABLES Final Result Performing Organization Address City/[facility]/ZIP Co de Phone Number [facility] [address] [place], [place] [phone] documented in this encounter Visit Diagnoses Diagnosis Hypocalcemia- Primary documented in this encounter Additional Health Concerns Assessment Noted Time PHQ-9 Depression Total Score: 17 08/18/ 025 3:53 PM EDT documented as of this encounter Care Teams Building Illuminating Engineer Relationship Specialty Start Date End Date Lynn Treviño MD [address] [place] [address] PCP - General 10/01/22 documented as of this encounter
--- OUTSIDE RECORDS SUMMARY | 2025-05-05 19:24 | XMS_ITS | Clinical Summary ---
Author Organization [facility] [address] [facility] Address [address] [place] [address] Phone Care Team Providers Care Self Rising Flour Mixer Name Role Phone Lynn Treviño MD Primary Care Provider [phone] Allergies No known active allergies Medications UNABLE TO FIND Magnesium Oxide 240 MG Powd Pack Take 1 Tablet by mouth daily. - Oral Active escitalopram (LEXAPRO) 10 mg tablet Take 1 tablet (10 mg total) by mouth 1 (one) time each day. Prescribe by [place] Neurologist Active riboflavin (VITAMIN B2) 100 mg tablet Take 1 tablet (100 mg total) by mouth 1 (one) time each day. Active blood-glucose meter (FREESTYLE FREEDOM LITE MISC) 1 Each by Does not apply route daily. 3 Active FREESTYLE LANCETS MISC 1 Each by Does not apply route daily. 3 Active glucose blood test strip Test once daily 100 each 12 5 06/14/19 26 Active acetaminophen (TYLENOL) 500 mg tablet Take by mouth every 6 (six) hours if needed for mild pain. Active FreeStyle Lancets 28 gauge lancetsIndicati ons:Type 2 diabetes mellitus without complication, without long-term current use of insulin ([facility] V24, [facility] V28) USE TO TEST BLOOD SUGAR ONCE DAILY 200 each 2 5 Active OMEGA-3 FATTY ACIDS ORAL Take by [...] ONCE DAILY WITH BREAKFAST 90 tablet 1 5 Active ARIPiprazole (ABILIFY) 2 mg tablet 5 Active magnesium oxide (MAG-OX) 400 mg (241.3 elemental magnesium) tablet 5 Active prazosin (MINIPRESS) 1 mg capsule 5 Active progesterone (PROMETRIUM) 100 mg capsule 5 Active cholecalciferol (Vitamin D3) 50 mcg (2,000 unit) capsule Take 1 capsule (2,000 Units total) by mouth 1 (one) time each day. 30 each 11 5 04/26/20 26 Active Active Problems Problem Noted Date Diagnosed Date Gait instability 04/13/2025 Cervical spondylosis with radiculopathy 07/06/19 25 Assessment & Plan (07/08/2024 10:44 AM EST): [...] tingling in both hands 05/11/2024 Pituitary microadenoma 07/02/2023 Abnormal MRI of head 06/03/2023 Bilateral hearing loss 06/03/2023 Brain fog 06/03/2023 Gets lost in familiar location 06/03/2023 Pituitary abnormality 06/03/2023 Bilateral hip pain 05/13/2023 Chronic bilateral low back pain without sciatica 05/13/2023 Ear fullness, bilateral 05/13/2023 Hyperlipidemia 05/13/2023 Pure hypertriglyceridemia 05/13/2023 Snores 05/13/2023 Acute nonintractable headache 04/30/2023 Mediastinal mass 04/30/2023 Memory loss 04/30/2023 Obesity (BMI 30-39.9) 04/30/2023 PTSD (post-traumatic stress disorder) 04/30/2023 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 Weakness of both upper extremities 04/30/2023 Word finding difficulty 04/30/2023 Type 2 diabetes mellitus 01/07/2023 Encounters Date Type Department Care Team Description 05/04/2025 11:00 AM EST Office Visit Vascular Surgery - [place] [address] [place] [id number] Janessa Jones PA Leg edema (Primary Dx) 04/26/2025 Results Follow-Up [address] [phone] Lynn Treviño MD 04/24/2025 9:10 AM EST Lab Draw Station - [address] [facility] [address] [place] [id number] Hypocalcemia; Type 2 diabetes mellitus with other specified complication, without long-term current use of insulin (CMS/HCC V24, CMS/HCC V28); Pituitary microadenoma (CMS/HCC V24, CMS/HCC V28) 04/19/2025 7:50 AM EST Lab Draw Station - [address] Type 2 diabetes mellitus with other specified complication, without long-term current use of insulin (CMS/HCC V24, CMS/HCC V28); Pituitary microadenoma (CMS/HCC V24, CMS/HCC V28) 04/19/2025 Results [facility] - [address] [phone] Lynn Treviño MD 04/13/2025 9:30 AM EST Office Visit [facility] [place] - [address] [phone] Lynn Treviño MD Type 2 diabetes mellitus with other specified complication, without long-term current use of insulin ([facility] V24, [facility] V28) (Primary Dx); Anxiety and depression; Obesity (BMI 30-39.9); Gait instability 04/10/2025 12:00 PM EST Ancillary Procedure [facility] - [facility] [address] [place] [address] Leg edema from Last 3 Months Immunizations Immunization Administration Dates Next Due Hepatitis B (Recombivax HB-D ialysis) 18yo and older 04/17/2010 Influenza trivalent, 0.5mL, preservative free (Fluarix; FluLaval; Fluzone) ages 6mo and older (Afluria) 3 years and older 04/15/2019,03/19/2018,07/03/2017 Influenza trivalent, MDCK, 0 .5mL, preservative free (Flucelvax) 6mo and older 04/13/2025 Pneumococcal conjugate 20 va lent (Prevnar 20, PCV 20) 2mo and older 04/13/2025 Td Tetanus diptheria (Tdvax) 7yo and older 03/21 Tdap Tetanus diptheria acell ular pertussis (Boostrix; Adacel) 7yo and older 04/13/2025 Surgical History Surgery Date Site/Laterality Comments THORACIC DISC SURGERY Medical History Medical History Date Comments Anxiety Depression Diabetes ([facility] V24, [facility] V28) Social History Tobacco Use Types Packs/Day [...] care for your loved ones. For example, children counselor or elderly care for an older adult? [...] Orientation Bisexual 08/12/2024 11 :00 AM EDT Last Filed Vital Signs Vital Sign Reading Time Taken Comments Blood Pressure 100/60 05/04/2025 10:35 AM EST Pulse 80 05/04/2025 10:35 AM EST Temperature 36.7 C (98.1 F) 04/13/2025 9:24 AM EST Respiratory Rate 16 05/04/2025 10:35 AM EST Oxygen Saturation 95% 12/22/2024 10:30 AM EDT Inhaled Oxygen Concentration - - Weight 121 kg (266 lb) 05/04/2025 10:35 AM EST Height 175.3 cm (5' 9 ) 05/04/2025 10:35 AM EST Body Mass Index 39.28 05/04/2025 10:35 AM EST Plan of Treatment Health Maintenance Due Date Last Done Comments HPV Vaccines (1 - 3-dose SCDM series) 10/26/2011 HIV Screening 06/19/2023 Hepatitis C Screening 06/19/2023 Hepatitis B Vaccines (3 of 3 - 19+ 3-dose series) 12/13/2024 10/18/2024, 09/20/2024, 04/17/2010 COVID-19 Vaccine ( season) 2025 02/22/2024, 10/16/2021, 10/26/2020 Social Influencers of Health Screening 08/18/2025 08/18/2024 Diabetes: Annual Foot Exam 08/19/2025 08/19/2024, Diabetes: Blood Sugar Control Test (HGBA1C) 10/23/2025 04/24/2025, 04/19/2025, 08/16/2024, Additional history exists Diabetes: Annual Urine Albumin-Creatinine Ratio (uACR) 04/24/2026 04/24/2025, 04/19/2025, 06/09/2024, Additional history exists Diabetes: Annual GFR (Glomerular Filtration Rate) 04/24/2026 04/24/2025, 04/19/2025, 04/19/2024 Diabetes: Annual Retina Eye Exam 04/24/2026 01/05/2023 Postponed from 01/06/2024 (Patient Refused) Cholesterol Screening (Lipid Panel) 04/24/2030 04/24/2025, 04/19/2025, 08/16/2024, Additional history exists DTaP,Tdap,and Td Vaccines (3 - Td or Tdap) 04/13/2035 04/13/2025, 03/21/2010 RSV Immunization Adult Patients (1 - 1-dose 75+ series) 10/26/2059 Depression Screening Completed 08/18/2024 Influenza Vaccine Completed 04/13/2025, , 04/15/2019, Additional history exists Pneumococcal Vaccine: Pediatrics (0 to 5 Years) and At-Risk Patients (6 to 49 Years) Completed 04/13/2025, 03/16/2011 HIB Vaccines Aged Out No longer eligi [...] Procedure Name Priority Date/Time Associated Diagnosis Comments MICROALBUMIN CREATININE URINE RATIO Routine 04/24/2025 9:18 AM EST Type 2 diabetes mellitus with other specified complication, without long-term current use of insulin ([facility] V24, [facility] V28) ACTH Routine 04/24/2025 9:10 AM EST Pituitary microadenoma ([facility] V24, [facility] V28) COMPREHENSIVE METABOLIC PANEL Routine 04/24/2025 9:10 AM EST Type 2 diabetes mellitus with other specified complication, without long-term current use of insulin ([facility] V24, [facility] V28) HEMOGLOBIN A1C Routine 04/24/2025 9:10 AM EST Type 2 diabetes mellitus with other specified complication, without long-term current use of insulin ([facility] V24, [facility] V28) LIPID PANEL WITH REFLEX TO DIRECT LDL Routine 04/24/2025 9:10 AM EST Type 2 diabetes mellitus with other specified complication, without long-term current use of insulin ([facility] V24, [facility] V28) CALCIUM, IONIZED Routine 04/24/2025 9:10 AM EST Hypocalcemia VITAMIN D 25 HYDROXY Routine 04/24/2025 9:10 AM EST Hypocalcemia PARATHYROID HORMONE INTACT Routine 04/24/2025 9:10 AM EST Hypocalcemia THYROID STIMULATING HORMONE WITH REFLEX TO FREE T4 AND FREE T3 Routine 04/19/2025 8:13 AM EST Pituitary microadenoma ([facility] V24, [facility] V28) PROLACTIN Routine 04/19/2025 8:13 AM EST Pituitary microadenoma ([facility] V24, [facility] V28) HUMAN GROWTH HORMONE Routine 04/19/2025 8:13 AM EST Pituitary microadenoma ([facility] V24, [facility] V28) COMPREHENSIVE METABOLIC PANEL Routine 04/19/2025 8:13 AM EST Type 2 diabetes mellitus with other specified complication, without long-term current use of insulin ([facility] V24, [facility] V28) HEMOGLOBIN A1C Routine 04/19/2025 8:13 AM EST Type 2 diabetes mellitus with other specified complication, without long-term current use of insulin ([facility] V24, [facility] V28) MICROALBUMIN CREATININE URINE RATIO Routine 04/19/2025 8:13 AM EST Type 2 diabetes mellitus with other specified complication, without long-term current use of insulin ([facility] V24, [facility] V28) LIPID PANEL WITH REFLEX TO DIRECT LDL Routine 04/19/2025 8:13 AM EST Type 2 diabetes mellitus with other specified complication, without long-term current use of insulin ([facility] V24, [facility] V28) VAS US DUPLEX LOWER EXT VENOUS INSUFFICIENCY BILATERAL Routine 04/10/2025 12:23 PM EST Leg edema DIABETES FOOT EXAM Routine 05/13/2023 DIABETES EYE EXAM Routine 01/05/2023 from Last 3 Months or Most Recently Relevant to Health Maintenance Results * Microalbumin creatinine urine ratio (04/24/2025 9:18 AM EST) Only the most recent of2 resultswithin the time period is included. Creatinine, Urine 40.0 mg/dL 04/24/2025 11:37 AM EST [facility] Microalb, Ur <3.0 0.0 - 29.0 mg/L 04/24/2025 11:37 AM [facility] Microalb/Creat Ratio <8 <30 mg/g creat 04/24/2025 11:37 AM [facility] Urine Urine specimen obtained by clean catch procedure / Unknown Non-blood Collection / Unknown 04/24/2025 9:18 AM EST 04/24/2025 10:19 AM EST Lynn Treviño MD LAB URINE ORDERABLES Final Result [facility] [address] [place] [address], [place] [phone] * (ABNORMAL) Lipid panel with reflex to direct LDL (04/24/2025 9:10 AM EST) Only the most recent of2 resultswithin the time period is included. Cholesterol 131 0 - 200 mg/dL 04/24/2025 11:27 AM EST [facility] Triglycerides 269(H) 0 - 150 mg/dL 04/24/2025 11:27 AM [facility] HDL 26(L) >=40 mg/dL 04/24/2025 11:27 AM [facility] LDL Calculated 51 0 - 100 mg/dL 04/24/2025 11:27 AM [facility] Comment:Estimated LDL Calcul ated using equation: Total cholesterol - HDL cholesterol - (Triglycerides/5) VLDL Cholesterol Ab 53.8 mg/dL 04/24/2025 11:27 AM [facility] Non HDL Chol. (LDL+VLDL) 105 <145 mg/dL 04/24/2025 11:27 AM [facility] Chol/HDL Ratio 5.0(H) 0.0 - 4.4 04/24/2025 11:27 AM [facility] Blood Venous blood specimen / Unknown Venipuncture / Unknown 04/24/2025 9:10 AM EST 04/24/2025 10:14 AM EST Lynn Treviño MD LAB BLOOD ORDERABLES Final Result [facility] [address] [place] [address], [place] [phone] * (ABNORMAL) Vitamin D 25 hydroxy (04/24/2025 9:10 AM EST) Vit D, 25-Hydroxy 17.6(L) 30.0 - 80.0 ng/mL 04/24/2025 11:19 AM EST [facility] Blood Venous blood specimen / Unknown Venipuncture / Unknown 04/24/2025 9:10 AM EST 04/24/2025 10:14 AM EST Lynn Treviño MD LAB BLOOD ORDERABLES Final Result [facility] [address] [place] [address], [place] [phone] * ACTH (04/24/2025 9:10 AM EST) Adrenocorticotropic Hormone (ACTH) 23 <=46 pg/mL 04/26/2025 11:40 AM EST [facility] Comment: Test performed at [facility], [address] , [place] [address] Brandi Rincon MD, PhD - Posting Clerk Blood Venous blood specimen / Unknown Venipuncture / Unknown 04/24/2025 9:10 AM EST 04/24/2025 12:05 PM EST Lynn Treviño MD LAB BLOOD ORDERABLES Final Result [facility] [address] [place] [address] * (ABNORMAL) Parathyroid hormone intact (04/24/2025 9:10 AM EST) Pathologist [facility] PTH 118.9(H) 18.5 - 88.0 pcg/mL 04/24/2025 11:16 AM EST [facility] Blood Venous blood specimen / Unknown Venipuncture / Unknown 04/24/2025 9:10 AM EST 04/24/2025 10:14 AM EST Lynn Treviño MD LAB BLOOD ORDERABLES Final Result [facility] [address] [place] [address], [place] [phone] * Hemoglobin A1c (04/24/2025 9:10 AM EST) Only the most recent of2 resultswithin the time period is included. Pathologist [facility] Hemoglobin A1C 5.9 <6.5 % LAB CHEMISTRY METHOD 04/24/2025 2:05 PM EST [facility] Mean Bld Glu Estim. 123 mg/dL LAB CHEMISTRY METHOD 04/24/2025 2:05 PM EST [facility] Blood Venous blood specimen / Unknown Venipuncture / Unknown 04/24/2025 9:10 AM EST 04/24/2025 10:17 AM EST Lynn Treviño MD LAB BLOOD ORDERABLES Final Result [facility] [address] [place] [address], * Calcium, ionized (04/24/2025 9:10 AM EST) Calcium Ionized 4.9 4.6 - 5.4 mg/dL 04/26/2025 9:21 AM EST [facility] Comment: Test performed at [facility], [address], [place] [address] Brandi Rincon MD, PhD - Posting Clerk Blood Venous blood specimen / Unknown Venipuncture / Unknown 04/24/2025 9:10 AM EST 04/24/2025 10:14 AM EST Lynn Treviño MD LAB BLOOD ORDERABLES Final Result Performing Organization Address City/[facility]/ZIP Co de Phone Number [facility] [address] [place] [address] * (ABNORMAL) Comprehensive metabolic panel (04/24/2025 9:10 AM EST) Only the most recent of2 resultswithin the time period is included. Sodium 138 133 - 145 mmol/L 04/24/2025 11:27 AM EST [facility] Potassium 4.5 3.5 - 5.5 mmol/L 04/24/2025 11:27 AM EST [facility] Chloride 101 96 - 110 mmol/L 04/24/2025 11:27 AM EST [facility] CO2 26 21 - 32 mmol/L 04/24/2025 11:27 AM [facility] Anion Gap 11 3 - 11 04/24/2025 11:27 AM [facility] Glucose 77 70 - 100 mg/dL 04/24/2025 11:27 AM [facility] BUN 7 5 - 25 mg/dL 04/24/2025 11:27 AM [facility] Creatinine 0.76 0.50 - 1.30 mg/dL 04/24/2025 11:27 AM [facility] eGFR 117 >=60 mL/min/1. 73m2 04/24/2025 11:27 AM [facility] Comment:Calculation based on the Chronic Kidney Disease Epidemiology Collaboration (CKD-EPI) equation refit without adjustment for race. BUN/Creatinine Ratio 9.2 04/24/2025 11:27 AM [facility] Calcium 7.7(L) 8.5 - 10.5 mg/dL 04/24/2025 11:27 AM [facility] AST (SGOT) 17 10 - 42 unit/L 04/24/2025 11:27 AM [facility] ALT (SGPT) 19 10 - 60 unit/L 04/24/2025 11:27 AM [facility] Alkaline Phosphatase 97 42 - 121 unit/L 04/24/2025 11:27 AM [facility] Total Protein 6.6 6.0 - 8.0 g/dL 04/24/2025 11:27 AM [facility] Albumin 3.9 3.2 - 5.0 g/dL 04/24/2025 11:27 AM [facility] Total Bilirubin 0.6 0.0 - 1.4 mg/dL 04/24/2025 11:27 AM [facility] Blood Venous blood specimen / Unknown Venipuncture / Unknown 04/24/2025 9:10 AM EST 04/24/2025 10:14 AM EST Lynn Treviño MD LAB BLOOD ORDERABLES Final Result Performing Organization Address [facility]/ZIP Co de Phone Number [facility] [address] [place] [address], [place] [phone] * Thyroid stimulating hormone with reflex to free t4 and free t3 (04/19/2025 8:13 AM EST) TSH 2.13 0.40 - 4.00 mcIU/mL 04/19/2025 11:18 AM EST [facility] Blood Venous blood specimen / Unknown Venipuncture / Unknown 04/19/2025 8:13 AM EST 04/19/2025 8:13 AM EST Lynn Treviño MD LAB BLOOD ORDERABLES Final Result Performing Organization Address [facility] Co de Phone Number [facility] [address] [place] [address], [place] [phone] * Prolactin (04/19/2025 8:13 AM EST) Prolactin 10.80 2.10 - 17.70 ng/mL 04/19/2025 11:20 AM EST [facility] Blood Venous blood specimen / Unknown Venipuncture / Unknown 04/19/2025 8:13 AM EST 04/19/2025 8:13 AM EST Narrative [facility] - 04/19/2025 11:20 AM EST Prolactin Female Reference Ranges (ng/mL): Non: 2.8 - 29.2 : 9.7 - >200.0 Postmenopausal: 1.8 - 20.3 Lynn Treviño MD LAB BLOOD ORDERABLES Final Result Performing Organization Address City/[facility]/ZIP Co de Phone Number [facility] [address] [place] [address], [place] [phone] * Human growth hormone (04/19/2025 8:13 AM EST) Growth Hormone, Human 0.2 <10 ng/mL 04/24/2025 11:50 AM EST [facility] Comment: Test performed at [facility], [address], [place] [address] Brandi Rincon MD, PhD - Posting Clerk Blood Venous blood specimen / Unknown Venipuncture / Unknown 04/19/2025 8:13 AM EST 04/19/2025 8:13 AM EST us Lynn Treviño MD LAB BLOOD ORDERABLES Final Result [facility] [address] [place] [address] * Vascular US duplex lower extremity venous insufficiency bilateral (04/10/2025 12:23 PM EST) Left fem mid reflux 522 ms [facility] Left GSK seb 0.43 cm [facility] Left GSDC seb 0.33 cm [facility] Left GSMT seb 0.52 cm [facility] Left GSPC seb 0.43 cm CV [facility] Left GSPT seb 0.48 cm CV [facility] Left pop reflux 550 ms CV [facility] LAB Left SFJ Diameter 0.90 cm CV [facility] LAB Left SSMC seb 0.22 cm CV VAS LAB Left SSPC seb 0.24 cm CV [facility] Right GSK seb 0.32 cm CV VAS LAB Right GSDC seb 0.39 cm CV VAS LAB Right GSMT seb 0.34 cm CV VAS LAB Right GSPC seb 0.26 cm CV VAS LAB Right GSPT seb 0.64 cm CV VAS LAB Right SFJ Diameter 0.83 cm CV [facility] Right SSMC seb 0.32 cm CV [facility] LAB Right SSPC esb 0.26 cm CV [facility] LAB Left SFJ Reflux Time 433 ms CV [facility] LAB Anatomical Region Laterality Modality Vascular, Abdomen Ultrasound Narrative 04/10/2025 9:56 PM EST RIGHT. 1. No evidence of deep vein [...] GSV branch with 0.8 seconds of reflux. Right Lower Venous No evidence of deep vein thrombosis in the common femoral, deep femoral, proximal femoral, mid femoral, distal femoral, popliteal, greater saphenous, small saphenous, posterior tibial and peroneal veins of the right leg. The vessels showed compressibility. Interrogation showed phasic and spontaneous Doppler signals. Right Venous Insufficiency Duplex The exam was performed with the patient in reverse Trendelenburg. Left Lower Venous No evidence of deep vein thrombosis in the common femoral, deep femoral, proximal femoral, mid femoral, distal femoral, popliteal, greater saphenous, small saphenous, posterior tibial and peroneal veins of the left leg. The vessels showed compressibility. Interrogation showed phasic and spontaneous Doppler signals. Left Venous Insufficiency Duplex The exam was performed with the patient in reverse trendelenburg. Refluxing left greater saphenous branch: 0.23cm diameter mid calf= 750ms [employer] Teacher Details A leal scale, color and doppler analysis ultrasound was performed. During the study longitudinal and transverse views were obtained. Pulsed wave doppler was performed. Amber Pickard MD CV VASCULAR PROCEDURES Final Result * Diabetes Foot Exam (05/13/2023) Pathologist [facility] Diabetes: Annual Foot Exam abstracted Result [facility] Historical Provider HEALTH MAINTENANCE Final Result * Diabetes Eye Exam (01/05/2023) [facility] Diabetes: Annual Retina Eye Exam abstracted Result [facility] Historical Provider HEALTH MAINTENANCE Final Result from Last 3 Months or Most Recently Relevant to Health Maintenance Insurance [facility] Care Teams Self Rising Flour Mixer Relationship Specialty Start Date End Date Lynn Trevñio MD [address] [place] [address] PCP - General 10/01/22
--- OUTSIDE RECORDS SUMMARY | 2025-05-05 19:24 | XMS_ITS | Patient Health Record ---
Author Organization [facility] Address [address] [place] [address] Care Team Providers Care Electronic Plotting System Operator Name Role Phone ANDRIYAdri CALE Unavailable [phone] RAFAEL LARSON Unavailable [phone] Allergies No Known Allergies Results Component Value Reference Range Flag Notes Testosterone,All genders-540 005 Reviewed date:10/03/2024 10:37:14 AM Interpretation:3.3 Performing Lab:[facility], [address] [place] [address], Phone - [phone], Director - [facility] Notes/Report: Testosterone, All genders 3.3 This test [...] and 39 years old. Melissa, et.al. JCEM 2017,102;9606-6979 PMID: [id number]. Adult Females Premenopausal 10-55 Postmenopausal 7-40 Estradiol-[id number] Reviewed date:09/25/2024 08:20:36 AM Interpretation:196 Performing Lab:[facility] [place], [address] [place] [address], Phone - [phone], Director - Dequan Notes/Report: Estradiol 196.0 7.6-42.6 pg/mL H Deshaun ECLI A methodology Testosterone,All genders-540 005 Reviewed date:07/21/2024 09:06:38 AM Interpretation:4.8 Performing Lab:[facility], [address] [place] [address], Phone - [phone], Director - Curt Notes/Report: Testosterone, All genders 4.8 This test was developed and its performance characteristics determined by [facility]. It has not been cleared or approved [...] 20-38 Adult Males >18 years 264-916 This [facility] LC/MS-MS method is currently certified by the CDC Hormone Standardization Program (HoST). Adult male reference interval is based on a population of healthy nonobese males (BMI <30) between 19 and 39 years old. Melissa et.al. JCEM 2017,102;3427-4500 PMID: [id number]. Adult Females Premenopausal 10-55 Postmenopausal 7-40 Estradiol-[id number] Reviewed date:07/14/2024 10:03:37 AM Interpretation:432, elevated Performing Lab:[facility] [place], [address] [place] [address], Phone - [phone], Director - Dequan Notes/Report: Estradiol 432.0 7.6-42.6 pg/mL H Deshaun ECLI A methodology Testosterone,All genders-540 005 Reviewed date:04/05/2025 10:06:08 AM Interpretation:5.3 Performing Lab:[facility], [address] [place] [address], Phone - [phone], Director - Branden Notes/Report: Testosterone, All genders 5.3 This test was developed and its performance characteristics determined by [facility]. It has not been cleared or approved [...] 20-38 Adult Males >18 years 264-916 [employer] LC/MS-MS method is currently certified by the CDC Hormone Standardization Program (HoST). Adult male reference interval is based on a population of healthy nonobese males (BMI <30) between 19 and 39 years old. Melissa, et.al. JCEM 2017,102;7331-3117 PMID: [id number]. Adult Females Premenopausal 10-55 Postmenopausal 7-40 Estradiol-[id number] Reviewed date:03/30/2025 09:02:22 AM Interpretation:189 Performing Lab:[facility] [place], [address] [place] [address], Phone - [phone], Director - Dequan Notes/Report: Estradiol 189.0 7.6-42.6 pg/mL H Deshaun ECLI A methodology Testosterone,All genders-540 005 Reviewed date:01/05/2025 01:59:50 PM Interpretation:3.9 Performing Lab:[facility], [address] [place] [address], Phone - [phone], Director - [facility] Notes/Report: Testosterone, All genders 3.9 This test was developed and its performance characteristics determined by [facility]. It has not been cleared or approved [...] 20-38 Adult Males >18 years 264-916 This [employer] LC/MS-MS method is currently certified by the CDC Hormone Standardization Program (HoST). Adult male reference interval is based on a population of healthy nonobese males (BMI <30) between 19 and 39 years old. Melissa et.al. JCEM 2017,102;9556-4413 PMID: [id number]. Adult Females Premenopausal 10-55 Postmenopausal 7-40 Estradiol-[id number] Reviewed date:12/23/2024 12:36:46 PM Interpretation:370 Performing Lab:[facility], [address] [place] [address], [place], Phone - [phone], Director - Dequan Notes/Report: Estradiol 370.0 7.6-42.6 pg/mL H Deshaun ECLI A methodology Reason For Referral No Information Medications Medication SIG (Take, Route, Frequency, Duration) Notes Start Date End Date Status Prometrium 100 MG Capsule as directed Orally Once daily at bedtime; Duration: 90 days 10/12/2024 Active Estradiol Valerate 20 MG/ML Oil 0.3 mL Intramuscular Once weekly; Duration: 90 days 01/18/2024 Active Simethicone Active ARIPiprazole Active Easy Comfort Alcohol Pads - Pad as directed; Duration: 90 days 01/18/2024 Active Sharps Container - Miscellaneous as directed; Duration: 90 days 01/18/2024 Active Fish Oil Active BD Syringe/Needle 22G X 1-1/2 3 ML Miscellaneous as directed IM weekly; Duration: 90 days 05/02/2024 Active Prazosin HCl Active BD Disp Candor 19G X 1 Miscellaneous used to draw up medication; Duration: 90 days 05/02/2024 Active BD Syringe Luer-Bladimir 1 ML Miscellaneous as directed; Duration: 90 days 01/18/2024 Active Magnesium Active Fiber Not-Taking /PRN Needle (Disp) 22G X 1-1/2 Miscellaneous as directed for drawing up medication and administering; Duration: 90 days Active Escitalopram Oxalate Active metFORMIN HCl Active Loratadine Active Multivitamin Not-Ilya ing/PRN Vitamin B2 Active Acetaminophen Active Social History Sex Assigned At : [...] access to food is Secure Food Access Relationships: Social Info Question Answer Notes Relationships Has the client experienced any of the following: Client has never experienced harmful relationships Gender Affirming Hormone Car e Social Info [...] Notes Problem 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 Problem Gender identity disorder (01823277) Gender identity disorder, 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 Vital Signs Blood pressure diastolic 80 mm Hg 03/29/2025 Height 5'9 in 03/29/2025 Blood pressure systolic 132 mm Hg 03/29/2025 Weight 261.9 lbs 03/29/2025 BMI 38.67 kg/m2 03/29/2025 Encounters Encounter Location Date Provider Diagnosis [facility] [address] [place] [address] [place], [place] [phone] 07/13/2024 CALE MCCURDY Other gender identit y disorders F64.8 and Hormone replacement therapy Z79.890 [facility] [address] [place], [place] [phone] 07/20/2024 RAFAEL NEO Gender identity disorder, unspecified F64.9 and Hormone replacement therapy Z79.890 [facility] [address] [facility] [place] [phone] 09/23/2024 CALE MCCURDY Gender identity disorder, unspecified F64.9 [facility] [address] [place], [place] [phone] 10/12/2024 RAFAEL NEO Gender identity disorder, unspecified F64.9 and Hormone replacement therapy Z79.890 [facility] [address] [place], [place] [phone] 12/21/2024 RAFAEL SHARPY [facility] [address] [place], [place] [phone] 01/04/2025 RAAFEL NEO Gender identity disorder, unspecified F64.9 and Hormone replacement therapy Z79.890 [facility] [address] [place], [place] [phone] 03/29/2025 RAFAEL NEO Gender identity disorder, unspecified F64.9 and Hormone replacement therapy Z79.8[address] [facility] [address] [place] [id number] 07/20/2024 RAFAEL LARSON [facility] [address] [place] [id number] 10/12/2024 RAFAEL LARSON [facility] [address] [place] [id number] 01/04/2025 RAFAEL LARSON [facility] [address] [place] [id number] 03/29/2025 RAFAEL SHARPY Gender identity disorder, unspecified F64.9 Assessments Encounter Date Diagnosis (ICD Code) Assessment Notes Treatment Notes Treatment Clinical Notes Section Notes 07/13/2024 Other gender identity disorders (ICD-10 - [...] Risk Document low risk of morbidity/mortal ity 03/29/2025 Gender identity disorder, unspecified (ICD-10 - F64.9) Feeling good at current regimen. For labs today- if WNL then plan for revisit in 6 months. If needing further dosage changes then revisit in 3 months. Will defer sending Rx's now until labs reviewed. Clt not in need of immediate refills Need 2 out of 3 Sections from A-C Section A) Problems (only need one from below) One acute or uncomplicated illness/injury Section B) Data (at least one of the following categories in this section) Category 1: (Choose 2 of the following): Order unique tests Section C) Risk Document low risk of morbidity/mortal ity 03/29/2025 Hormone replacement therapy (ICD-10 - Z79.890) Need 2 out of 3 Sections from A-C Section A) Problems (only need one from below) One acute or uncomplicated illness/injury Section B) Data (at least one of the following categories in this section) Category 1: (Choose 2 of the following): Order unique tests Section C) Risk Document low risk of morbidity/mortal ity 03/29/2025 Gender identity disorder, unspecified (ICD-10 - F64.9) 01/04/2025 Hormone replacement therapy (ICD-10 - Z79.890) [...] Treatment Future Test Test Name Order Date Estradiol-[id number] 09/13/2025 Testosterone,All genders-[id number] 09/14/19 Next Appt Details Provider Name:RAFAEL LARSON, 11:00:00 AM, [address] [place], [place], [phone], Provider Name:RAFAEL LARSON, 10/2025 11:00:00 AM, [address] [place], [place], [phone], Insurance Providers Payer Name Payer Address Payer Phone Subscriber Number Group Number Insured Name Patient Relationship to Insured Coverage Start Date Coverage End Date [place]S [address] [place] [id number] Alvin Webb Self - patient is the [...]
--- OUTSIDE RECORDS SUMMARY | 2025-05-05 19:25 | XMS_ITS | Data Portability ---
Author Organization [place] - [facility], Allergy Address [address] [address] Care Team Providers Care Legal Document Assistant Name Role Phone ARNALDO RICHARD Primary Care Provider [phone] Assessment Encounter Date Assessment Date Assessment LastModified by Organization Details LastModified Time 08/24/2024 08/24/2024 38yo male presents following left tympanoplasty, ossiculoplasty, mastoid, recon eac def, trag gft surg on 08/17/[address] Lees. Patient is doing well post-operatively . Pain is managed with OTC analgesics. Denies dizziness, taste disturbance, numbness, facial asymmetry, hearing loss, or otorrhea. Gelfoam partially removed from the affected external ear canal. Will send topical Ofloxacin to use twice daily in affected ear canal for 14 days. Reviewed post-operative instructions. [email or web address] Not available 08/24/2024 15:11:58 10/05/2024 10/05/2024 The left ear is demonstrating some otorrhea and granulation tissue in the ear canal following first stage surgery for removal of cholesteatoma. The granulation tissue was debrided and cauterized with silver nitrate. Antibiotic drops applied. I have recommended 2 weeks of topical TobraDex drops to be used twice a day. He will follow-up in 1 month for reevaluation. He will continue to maintain dry ear precautions. If everything has healed adequately at his next visit we will get postoperative audiometric testing, then discuss plan for follow-up with regards to second stage cholesteatoma surgery in the fall. [email or web address] Not available 10/05/2024 14:07:34 11/02/2024 11/02/2024 The left external auditory canal inflammation has settled down nicely. No signs of persistent infection or inflammation. He does have some scarring in the mid external auditory canal superiorly which does not significantly limit review of the medial canal. The reconstructed drum and cartilage graft appear well-healed. Tympanostomy tube in place. Audiometric testing today showed improvement and the air conduction thresholds. He still has some residual high and low-frequency conductive hearing loss this may improve over time. We discussed that he did have a dehiscent facial nerve which is impinging on his stapes which may limit how much the hearing can improve. All water and activity precautions are lifted. I will see the patient back in about 4 months. We discussed the fact that he will need second stage surgery to rule out recurrent cholesteatoma which would be tentatively scheduled for March, and should be able to be done via small supra-auricular incision with otoendoscopes. [email or web address] Not available 11/02/2024 16:42:29 03/09/2025 03/09/2025 Left ear remains well-healed following [...] patient with the contact information for my surgical device sales representative. We will begin the scheduling process and see the patient back at the time of surgery. Patient will not require medical clearance from their primary care provider preoperatively. We will anticipate scheduling in March which would be 8 months after the original procedure. Not available 03/09/2025 10:17:42 Plan of Treatment Reminders Order Date Submit Date Provider Last Modified By Organization Details Last Modified Time Details Appointments None recorded. Lab None recorded. Referral None recorded. Procedures None recorded. Surgeries middle ear exploration through postauricul ar or ear canal incision (SURG) 2024 025 [email or web address] 9 Not available 15:42:05 tympanoplas ty with mastoidecto my, with intact or reconstruct ed canal wall, with ossicular chain reconstruct ion (SURG) 2024 025 [email or web address] 9 Not available 12:13:02 Imaging None recorded. Medication Orders tobramycin 0.3 %-dexametha sone 0.1 % eye drops,suspe nsion 2024 025 [facility], [address], [address], [place], [address], 15:05:24 ofloxacin 0.3 % ear drops 2024 025 [facility], [address], [address], [place], [address], 13:48:56 Patient TargetsNo targets recorded. Patient InstructionsNo instructions recorded. Reason for Referral None Reported. Results Created Date Observation Date Name Description Value Unit Range Abnormal Flag Note LastModifiedBy Organization Detail LastModifiedTime 08/01/1908/18/2024 CT, tempo ral bone, w/o contr ast No observ ation record ed. [email or web address] [facility] [address], [place], [address], 08/17/2024 11:41:54 11/03/19 25 audio gram No observ ation record ed. BARCODE Not Available 2024 17:11:58 Result Notes None recorded. Problems Name Problem SNOMED Code Status Onset Date Resolution Date Notes Provider Name and Address Organization Details Recorded Time Conductive hearing loss, bilateral 689688439 Active 2023 Bibiana LARA [address] [facility] [address], [place], [address], [place] - [facility] 4 15:06:10 Dysfunction of eustachian tube 33391402 Active 2023 TONIA LEES MD [address] [facility] [address], [place], [address], [place] - [facility] 5 20:30:56 Chronic mucoid otitis media 20264121 Active 2023 TONIA LEES MD [address] [facility] [address], [place], [address], [place] - [facility] 4 15:57:47 Conductive hearing loss of left ear 1850207845 Active 2023 TAMI CERVANTES [place], CCC-A [address] [facility] [address], [place], [address], [place] - [facility] 4 11:29:00 Adhesive otitis media of left middle ear 2562653778881 102 Active 2023 TONIA LEES MD [address] [facility] [address], [place], [address], [place] - [facility] 4 11:21:51 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 2223335888684 107 Active 2024 TONIA LEES MD [address] [facility] [address], [place], [address], [facility] - [facility] 5 20:30:47 Ossicular erosion 4234291743726 4 Active 2024 TONIA LEES MD [address] [facility] [address], [place], [address], [place] - [facility] 5 11:14:32 Granulation of tissue 949678763 Active 2024 TONIA LEES MD 100 [facility],[address], [place], [address], [facility] - [facility] 14:03:51 Otorrhea of left ear 6785773802713 108 Active 2024 TONIA LEES MD 100 [facility], [place], [address], [facility] - [facility] 14:04:05 Bilateral hearing loss 09791649 Active 2024 BORA MONCADA AuD 100 [facility], [place], [address], [facility] - [facility] 16:04:51 Problem Notes None recorded. Procedures Surgical History Date Name Laterality Status Provider Name and Address Organization Details Recorded Time 025 Comp Audio with Tymps - 56499 & 91052 completed Bibiana LARA 100 [facility],[address], [address], [facility] - [facility] 11/02/2024 16:01:52 025 EAC debris removal with microscope completed TONIA LEES MD 100 [facility],[address], [address], [facility] - [facility] 10/05/2024 14:08:[address] temporal bones - Xoran completed TONIA LEES MD 100 [facility],[address] [address], [place], [address], [facility] - [facility] 07/21/2024 11:13:34 024 Comp Audio with Tymps - 01967 & 13218 completed TAMI CERVANTES [place], CCC-A 100 [facility],[address] [address], [place], [address], [place] - [facility] 01/07/2024 11:28:16 024 MYRINGOTOMY, BILATERAL, WITH EUSTACHIAN TUBE INFLATION (SURG) completed TONIA LEES MD 100 [facility],[address], [address], [place] - [facility] 07/21/2024 12:02:20 024 Comp Audio with Tymps - 01327 & 80815 completed Bibiana LARA 100 [facility] [address], [place], [address], [facility] - [facility] 10/22/2023 14:59:50 024 Fiberoptic Nasopharyngoscopy completed TONIA LEES MD 100 [facility] [address], [place], [address], [facility] - [facility] 10/22/2023 15:58:54 Thoracic surgery ss completed Triny Diaz [place] - [facility] 10/22/2023 14:40:16 Imaging Results None recorded. Procedure [...] lable Vitals Date Recorded Body height Body weight Provider Name and Address Organization Details Last Updated DateTime 07/21/2024 175.26 cm 611854.02 g Triny Diaz [place] - [facility] 07/21/2024 11:32:22 Date Recorded Body height Provider Name an d Address Organization Details Last Updated DateTime 08/24/2024 175.26 cm ADRIANE HATFIELD [place] - [facility] 08/24/2024 14:38:48 Date Recorded Body height Body weight Provider Name and Address Organization Details Last Updated DateTime 10/05/2024 175.26 cm 401588.02 g Triny Diaz [place] - [facility] 10/05/2024 13:47:36 Date Recorded Body height Body mass index (BMI) Body weight Provider Name and Address Organization Details Last Updated DateTime 11/02/2024 175.26 cm 38.4 kg/m2 596510.02 g Princess George [place] - [facility] 11/02/2024 16:34:55 Date Recorded Body height Body mass index (BMI) Body weight Provider Name and Address Organization Details Last Updated DateTime 03/09/2025 175.26 cm 38.4 kg/m2 813421.02 g Triny Diaz [place] - [facility] 03/09/2025 10:01:39 Social History Question Answer Notes LastModified by Organizat ion Details LastModified Time Tobacco Smoking Status Former Smoker Triny shetty [place] - [facility] 10/22/2023 14:40:31 How Many Years Have You Consumed Alcohol? 99 [email or web address] Information not available 10/05/2024 What Type Of Sewing Machine Repairer Helper Do You Use? None [email or web address] Information not available 10/05/2024 How Many Alcoholic Drinks Do You Consume Per Day On Average? 2 Information not available 10/05/2024 When Did You Quit Smoking? 1-5yearssinc elastcigaret te [email or web address] Information not available 10/05/2024 What Is Your Current Pack Years? 30ormorepack years [email or web address] Information not available 10/05/2024 Do You Have Any Pets? No [email or web address] Information not available 10/05/2024 At What Age Did You Start Smoking Tobacco? 17 [email or web address] Information not available 10/05/2024 Are You Passively Exposed To Smoke? No [email or web address] Information not available 10/05/2024 Are There Any Smokers In Your House? No [email or web address] Information not available 10/05/2024 How Much Tobacco Do You Smoke? 0.5 PPD [email or web address] Information not available 10/05/2024 How Many Years Have You Smoked Tobacco? 15 [email or web address] Information not available 10/05/2024 How Many Years Have You Used E-cigarettes Or Vape? 3 [email or web address] Information not available 10/05/2024 Sex: Unknown Functional Status Question Answer Note LastModified by Organizat ion Details LastModified Time How many times per week do you consume alcohol? 5-7 times per week [email or web address] Information not available 11/02/2024 Do you use any illicit or recreational drugs? No Information not available 10/05/2024 Do you or have you ever used any other forms of tobacco or nicotine? Yes [email or web address] Information not available 10/05/2024 What is your level of alcohol consumption? Occasional [email or web address] Information not available 10/05/2024 Do you or have you ever used smokeless tobacco? 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 Current user of electronic cigarettes [email or web address] Information not available 11/02/2024 What type of noise exposure are you exposed to? Other Information not available 10/05/2024 Mental Status None recorded. Family History Nothing Reported. Medical History Condition Response Allergies/Hayfever N Heart Problems N Anxiety Y Tonsil Infections N Emphysema N Migraines Y Thyroid Problems N Glaucoma N Developmental Delay N Depression Y COPD N Nasal or Sinus Problems N Anemia N Immune System Disorder N Anesthesia Complications N Heart Attack ([place]) N Other Skin Condition N Diabetes Y [...] ICD10 Code Diagnosis IMO Codes Diagnosis Note [id number] TONIA LEES MD [facility] [address] [address] 10/22/2023 13:48:32 10/22/2023 16:00:11 Conductive hearing loss, bilateral 540142414 H90.0 Audiologic al evaluation results: Right ear: Mild flat conductive hearing loss with excellent speech discrimina tion. Left ear: Mild to moderately severe conductive hearing loss with excellent speech discrimina tion. Tympanomet ry: Right Ear:Type B Left Ear:Type B Dysfunctio n of eustachian tube 75449027 H69.93 Chronic mu coid otitis media 92163202 H65.33 Patient with lifelong history of chronic eustachian tube dysfunctio n, chronic recurrent middle ear effusion and conductive hearing loss. He had only temporary relief of his symptoms with prior placement of tympanosto my tubes in the past. Audiometri c testing today shows significan t conductive hearing loss bilaterall y which is having a negative effect on his quality of life. Given the chronicity of the patient's eustachian tube dysfunctio n, patient is a good candidate for balloon dilation of the bilateral eustachian tube. Alternativ e treatment options including continued observatio n and myringotom y with tube placement were discussed as well. I explained the procedure in detail. We discussed the 70-75% success rate in improving or reversing eustachian tube dysfunctio n. We discussed that there is good three year data showing the fdc success as well. We discussed the risks of surgery, including bleeding, infection, anesthetic risks, patulous eustachian tube, and the small potential for damage to the carotid artery. Nasopharyn goscopy today has ruled out any intranasal or nasopharyn geal contraindi cations to balloon dilation on either side.After full discussion , the patient would like to proceed with bilateral balloon dilation of eustachian tube with concurrent placement of pressure equalizati on tube bilaterall y. After full discussion , the patient would like to proceed with surgery. I have provided patient with the contact informatio n for my surgical device sales representative. We will begin the scheduling process and see the patient back at the time of surgery. Patient will not require medical clearance from their primary care provider preoperati vely. [id number] ELLIS ACEVES PA-C [facility] [address] [address] 01/07/2024 10:31:48 01/07/2024 11:59:13 Conductive hearing loss of left ear 5890977270 H90.2 H90.12 Audiologic al evaluation results: Right ear: Normal hearing with excellent word recognitio n. Left ear: Severe conductive loss rising to mild at 2000Hz dropping to moderate to severe with excellent word recognitio n. Tympanomet ry: Right Ear:Type B with large volume (5.5) Left Ear:Type B with large volume (2.8) Dysfunctio n of eustachian tube 18806231 H69.93 [id number] TONIA LEES MD [facility] [address] [address] 03/07/2024 10:28:01 03/07/2024 11:22:22 Conductive hearing loss of left ear 0098428218 H90.12 Adhesive o titis media of left middle ear 8040710329 719024 H74.12 Dysfunctio n of eustachian tube 55275214 H69.93 [id number] TONIA LEES MD [facility] [address] [place] [address] 07/21/2024 10:35:11 07/21/2024 12:05:04 Conductive hearing loss of left ear 1702943231 H90.12 Adhesive o titis media of left middle ear 4407721404 622691 H74.12 Dysfunctio n of eustachian tube 66601167 H69.93 The left tympanosto my tube had extruded and was removed from the external auditory canal today. Right tympanosto my tube is still in place. Will continue to monitor the right ear tube going forward. 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 In addition, there is a scutum defect through which the cholesteat nazia is arising. Furthermor e, his significan t conductive hearing loss in the left is related to ossicular erosion. Today we discussed the pathophysi ology of cholesteat nazia and discussed the physical and radiologic al findings in detail. I have recommende d tympanopla sty with mastoidect adeline for the excision of the cholesteat nazia and reconstruc tion of the tympanic membrane. In addition I will reconstruc t the scutum defect using a tragal cartilage graft. I would also recommend concurrent placement of tympanosto my tube to provide ventilatio n during the healing process. We discussed the risks, benefits, and complicati ons associated with this surgery including the risks of bleeding, infection, persistent tympanic membrane perforatio n, temporary or permanent facial nerve paralysis or paresis, cerebrospi nal fluid leak, encephaloc arpit, temporary or permanent tinnitus, temporary or permanent balance disturbanc e. We also discussed the fact that the hearing may be significan tly reduced postoperat ively, which will most likely be temporary but may also be permanent. We discussed the fact that the patient will require a second stage surgery in 8-10 months to rule out recurrent cholesteat nazia as well as to perform ossicular chain reconstruc tion if needed. We discussed the fact that if there is a significan t recurrence of cholesteat nazia at the second stage surgery that further reoperatio ns may be required. After full discussion , the patient would like to proceed with surgery. I have provided patient with the contact informatio n for my surgical device sales representative. We will begin the scheduling process and see the patient back at the time of surgery. Patient will not require medical clearance from their primary care provider preoperati vely. 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 Will continue to monitor the right ear tube going forward. Bilateral hearing loss 29762236 H90.A12 60046404 Audiologic al evaluation results: Right ear: Normal hearing from 250 through 6000 Hz sloping to a mild sensorineu ral hearing loss with excellent word recognitio n. Left ear: Moderate rising to normal sloping to a moderately severe conductive hearing loss with excellent word recognitio n. 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 Will continue to monitor the right ear tube going forward. Health Concerns Section Related Observation LastModified by Organization Detai ls LastModified Time None Recorded Concern Status LastModified by Organization Details LastModified Time None Recorded Advance Directives Directive None Recorded Payers Insurance Date Sequence Insurance Name Policy Number Policy Smith Covered Member ID Smith Member ID Guarantor Name 03/09/2025 1 [facility] HE[facility] NET PLAN (MEDICAID HMO) RAKAN Alvin Webb [id number] Alvin Webb Notes Date Note Type Note Provider Name and Address Organization Details Recorded Time 07/21/2024 text/html Status post bilateral balloon dilation of the eustachian tube with concurrent placement of bilateral tympanostomy tubes on 12/04/2023. Mucoid effusions noted bilaterally. Pediatric fluoroplastic vent tubes placed. Postop audiometric testing showed normalization of the hearing on the right, but persistent conductive hearing loss on the left. Physical exam was concerning for presence of left-sided cholesteatoma, so he comes in today for CAT scan of the temporal bones. He continues to notice significant hearing loss in the left ear. No recent pain or discharge. TONIA LEES MD [address] [place] [address], [address], [facility] - [facility] 07/21/2024 12:07:04 08/24/2024 text/html ROS as noted in the HPI 38yo male presents following left tympanoplasty, ossiculoplasty, mastoid, recon eac def, trag gft surg on 08/17/[address] Lees. Patient is doing well post-operatively. Pain is managed with OTC analgesics. Denies dizziness, taste disturbance, numbness, facial asymmetry, or otorrhea. Daily headache. JEANNE KLEIN MD 100 [facility],[address], [address], [facility] 08/24/2024 16:55:04 10/05/2024 text/html Patient is now about 6 weeks status post left-sided tympano-ossiculoplast y with mastoidectomy with cartilage graft reinforcement of tympanic membrane, and PE tube placement. Ossicular chain reconstructed with Kartush incus strut. Patient has done well postoperatively and reports no pain or discharge. Patient reports that the hearing is improved. Patient has been noticing some otorrhea however. He reports using the topical antibiotic drops postoperatively as prescribed. TONIA LEES MD 100 [facility] [address], [place], [address], [facility] 10/05/2024 14:08:50 11/02/2024 text/html Status post first stage surgery for left-sided cholesteatoma on 07/28/2024. Postoperatively patient noted to have some otorrhea and granulation tissue in the ear which was debrided and cauterized at his last visit 1 month ago. Patient treated with topical TobraDex drops and he returns today for reevaluation and possible postoperative testing. TONIA LEES MD 100 [facility] [address], [place], [address], [facility] 11/02/2024 16:42:51 03/09/2025 text/html Patient with history of left [...] nothing consistent. No discharge. TONIA LEES MD [address] [place] [address], [place], [address], [place] - [facility] 03/09/2025 10:18:22
== END 2025-05-05 14:35 | disposition home or self-care (01) ==
LOC: HO.PMC 14:01
PROVIDERS: PCP Internal Medicine; Visit Provider Registered Nurse Emergency
DX: M47.816 Spondylosis without myelopathy or radiculopathy, lumbar region (principal); M54.9 Dorsalgia, unspecified; G89.29 Other chronic pain
CPT/HCPCS: 99213

== ENCOUNTER → 2025-05-05 14:00 | Outpatient (BNVA) | payer OTHER, SELFPAY | PROVIDERS: PCP Internal Medicine; Visit Provider Registered Nurse Emergency | DX: M47.816 Spondylosis without myelopathy or radiculopathy, lumbar region (principal); G89.29 Other chronic pain | CPT/HCPCS: 99212 ==